=== PATIENT | male | born 1935 | race Caucasian/White ===

== ENCOUNTER 2016-10-28 19:34 | Inpatient (IN) | payer MEDICARE, BC ==
--- NOTE | 2016-10-28 19:51 | EDM.PDOC ---
ED HPI GI/ABDOMINAL - General Chief Complaint: Gastrointestinal Problem Stated Complaint: VOMITING Time Seen by Provider: 10/28/16 19:51 Source of Information: Reports: Patient, Family (spouse) History Limitations: Reports: No limitations - History of Present Illness INITIAL COMMENTS - FREE TEXT/NARRATIVE: 81-year-old male presents to the ED with diffuse abdominal pain. She states shortly after eating dinner about 1330 hours today he developed mid abdominal sharp stabbing pain that radiates through to his mid back like he had been stabbed with a wooden stake.pain has a strong colicky component and comes and goes but has constant abdominal pain. Is not passing any flatus. Abdomen is becoming distended and firm. Unable to take a full deep breath because of the abdominal distention. Previous abdominal surgery includes a cholecystectomy appendectomy and a midline laparotomy for spinal fusion. No troubles passing his water at this time. Last bowel movement was this morning. Without blood. No previous history of bowel obstruction. Has had a history of diverticulitis. No fever or chills. Started vomiting about an hour ago. Partially undigested dinner and dark bilious material noted. No blood.fairly does have a history of abdominal aortic aneurysm. Symptom Onset Date: 10/28/16 Symptom Onset Time: 14:00 Timing/Duration: Reports: Hour(s):, Getting worse, Gradual onset Location: generalized Quality: Reports: cramping, fullness, stabbing, radiating (radiates through to his mid back at times.) Severity: severe Improves with: Reports: other (nothing seems to make it better or worse.) Context: Denies: sick contact, bad/questionable food, out of country travel, recent surgery, recent trauma, lifting, activity/exercise Associated Symptoms: Reports: back pain, shoulder pain, constipation ( occasional problems), loss of appetite, malaise (started about an hour and a half ago.), nausea/vomiting. 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 below) (has been taking some TUMS and got initially gave him some relief.) - Related Data Allergies/ADRs: Allergies Allergy/AdvReac Type Severity Reaction Status Date / Time adhesive Allergy Itching Verified 10/28/16 19:59 morphine AdvReac Nausea and Verified 10/28/16 19:59 Vomiting Home Meds: Home Meds Acetaminophen [Tylenol Arthritis] 1,300 mg PO BID PRN 10/28/16 [History] B2/Vit A,C & E/Lut/Zeaxanth/Mn [Icaps] 1 cap PO DAILY 10/28/16 [History] Cranberry 400 mg PO DAILY 10/28/16 [History] Fenofibric Acid (Choline) [Trilipix] 135 mg PO DAILY 10/28/16 [History] Fish Oil/[place]-3 Fatty Acids [Fish Oil] 1 gm PO BID 10/28/16 [History] Methocarbamol [Robaxin-750] 750 mg PO BID 10/28/16 [History] Metoclopramide HCl 5 mg PO QID 10/28/16 [History] Metoprolol Succinate [Toprol XL] 12.5 mg PO DAILY 10/28/16 [History] Multivitamin [Multivitamins] 1 tab PO DAILY 10/28/16 [History] Omeprazole [Omeprazole] 20 mg PO DAILY 10/28/16 [History] Pregabalin [Lyrica] 150 mg PO BID 10/28/16 [History] Sucralfate [Sucralfate] 1 gram PO QIDACANDBED 10/28/16 [History] Tamsulosin [Flomax] 0.4 mg PO DAILY 10/28/16 [History] traMADol HCl [Ultram] 100 mg PO BID 10/28/16 [History] Past Medical History Cardiovascular History: Reports: Hypertension Respiratory History: Reports: COPD, Sleep apnea (does wear C-Pap machine at hs. ) - Past Surgical History GI Surgical History: Reports: Appendectomy, Cholecystectomy, Other (see below) ( midline laparotomy for spinal fusion.) Other Musculoskeletal Surgeries/Procedures:: midline laparotomy performed for spinal fusion several years ago. Social & Family History - Alcohol Use Alcohol Use History: Yes Days Per Week of Alcohol Use: 1 (allergies about one drink a month) - Living Situation & Occupation Living situation: Reports: , with spouse Occupation: retired ED ROS GENERAL - Review of Systems Review Of Systems: See Below Constitutional: Reports: decreased appetite. Denies: fever, chills, malaise, weakness, fatigue, weight loss HEENT: Reports: No symptoms Respiratory: Reports: shortness of breath. Denies: wheezing (feels can get a full deep breath because it aggravates his abdominal pain.), pleuritic chest pain, cough, sputum, hemoptysis Cardiovascular: Reports: Blood pressure problem, Dyspnea on exertion (usually in his lower extremity.), Edema. Denies: Chest pain, Claudication, Lightheadedness, Orthopnea (hypertension controlled with medication usually), Palpitations (chronically) GI/Abdominal: Reports: Abdominal pain (see history of present illness), Decreased appetite, Nausea, Vomiting. Denies: Flatus, Hematemesis, Hematochezia : Reports: no symptoms Musculoskeletal: Reports: neck pain, shoulder pain (chronic neck and low back pain.shoulder pain intermittently for rotator cuff disease.), back pain Skin: Reports: no symptoms Neurological: Reports: no symptoms Psychiatric: Reports: No symptoms Hematologic/Lymphatic: Reports: no symptoms Immunologic: Reports: no symptoms ED EXAM, GI/ABD - Physical Exam Exam: See Below Exam Limited By: No limitations General Appearance: alert, moderate distress (in obvious discomfort.) Eyes: bilateral: normal appearance (no jaundice) Throat/Mouth: Normal inspection, Normal lips, Normal oropharynx Neck: normal inspection, supple, non-tender, full range of motion. No: limited range of motion, lymphadenopathy (L), lymphadenopathy (R) Respiratory/Chest: lungs clear (mild tachypnea at rest.), normal breath sounds, no accessory muscle use, respiratory distress Cardiovascular: regular rate, rhythm, no gallop, no murmur, no rub GI/Abdominal: normal bowel sounds, no organomegaly, tenderness (even to light percussion throughout the abdomen suggesting underlying peritonitis.), guarding (throughout the abdomen but worse left lower quadrant left upper abdomen.), rebound, other (I could not palpate a large abdominal aortic aneurysm. He has a small inguinal hernia on the right side.). No: McBurney's sign, Verdin's sign (Male) Exam: Normal inspection Extremities: normal inspection, normal range of motion, non-tender, no pedal edema, normal capillary refill Neurological: alert, oriented, CN II-XII intact, normal cognition, normal gait Psychiatric: normal affect, normal mood Skin Exam: Warm, Dry, Intact, Normal color EKG INTERPRETATION EKG Date: 10/28/16 Time: 20:15 Rhythm: NSR Rate (beats/min): 68 [place]: LAD-left axis deviation (-90. A vertical heart) P-wave: present (first-degree AV block) QRS: normal ST-T: other (deafening Q-wave in lead 3 and aVF in near Q-wave in lead to compare with old inferior wall myocardial infarction.) QT: prolonged (mildly prolonged.) Course - Vital Signs Last Recorded V/S: Last Vital Signs Temp 36.6 C 10/29/16 00:16 Pulse 74 10/29/16 00:16 Resp 18 10/29/16 00:16 BP 132/79 10/29/16 00:16 Pulse Ox 93 L 10/29/16 00:17 - Orders/Labs/Meds Orders: Active Orders 24 hr Category Date Time Status Oxygen Therapy [RC] ASDIRECTED Care 10/28/16 21:49 Active Abdomen 1V Flat [CR] Stat Exams 10/28/16 19:57 Taken Abdomen Pelvis w Cont [CT] Stat Exams 10/28/16 20:51 Taken Chest 1V Frontal [CR] Stat Exams 10/28/16 19:57 Taken Medication Orders Acetaminophen (Tylenol) 650 mg PO Q4H PRN PRN Reason: Pain (Mild 1-3)/fever Acetaminophen/Hydrocodone Bitart ([place] 325-5 Mg) 1 tab PO Q4H PRN PRN Reason: Pain (moderate 4-6) Albuterol/Ipratropium (Duoneb 3.0-0.5 Mg/3 Ml) 3 ml NEB Q4H PRN PRN Reason: Shortness Of Breath/wheezing Bisacodyl (Dulcolax) 5 mg PO DAILY PRN PRN Reason: Constipation Docusate Sodium (Colace) 100 mg PO BID PRN PRN Reason: Constipation Enoxaparin Sodium (Lovenox) 40 mg SUBCUT DAILY TA Fish Oil (Fish Oil) 1 gm PO BID TA Hydromorphone HCl (Dilaudid) 1 mg IVPUSH Q3H PRN PRN Reason: Pain (severe 7-10) Stop: 11/03/16 23:59 Last Admin: 10/29/16 00:50 Dose: 1 mg Dextrose/Sodium Chloride (Dextrose 5%-1/2 Ns) 1,000 mls @ 125 mls/hr IV ASDIRECTED TA Last Admin: 10/29/16 01:05 Dose: 125 mls/hr Levofloxacin/Dextrose 500 mg/ (Premix) 100 mls @ 100 mls/hr IV Q24H [facility] Last Admin: 10/29/16 01:07 Dose: 100 mls/hr Promethazine HCl 12.5 mg/ (Sodium Chloride) 50.5 mls @ 100 mls/hr IV Q6H PRN PRN Reason: Nausea/Vomiting Metronidazole 500 mg/ Premix 100 mls @ 100 mls/hr IV Q8H [facility] Last Admin: 10/29/16 01:01 Dose: 100 mls/hr Lorazepam (Ativan) 0.5 mg IV Q6H PRN PRN Reason: Nausea/Vomiting Methocarbamol (Robaxin) 750 mg PO BID [facility] Metoclopramide HCl (Reglan) 5 mg PO QID [facility] Metoprolol Succinate (Toprol Xl) 12.5 mg PO DAILY [facility] Multivitamins (Thera) 1 each PO DAILY [facility] Non-Formulary Medication (Cranberry [Cranberry]) 400 mg PO DAILY [facility] Ondansetron HCl (Zofran) 4 mg IV Q6H PRN PRN Reason: Nausea/Vomiting Last Admin: 10/29/16 01:01 Dose: 4 mg Pantoprazole Sodium (Protonix) 40 mg PO DAILY@0700 [facility] Polyethylene Glycol (Miralax) 17 gm PO DAILY PRN PRN Reason: Constipation Pregabalin (Lyrica) 150 mg PO BID [facility] Senna/Docusate Sodium (Senna Plus) 1 tab PO BID PRN PRN Reason: Constipation Sucralfate (Carafate) 1 gm PO QIDACANDBED [facility] Tamsulosin HCl (Flomax) 0.4 mg PO DAILY [facility] Temazepam (Restoril) 30 mg PO BEDTIME PRN PRN Reason: Sleep Vit A/Vit C/Vit E/Selen/Cu/Zn/Lutei (Icaps Mv) 1 tab PO DAILY [facility] Labs: Laboratory Tests 10/28/16 10/28/16 10/28/16 Range/Units 20:00 20:00 20:00 WBC 8.86 (4.23-9.07) K/mm3 RBC 5.28 (4.63-6.08) M/mm3 Hgb 15.9 (13.7-17.5) gm/L Hct 48.4 (40.1-51.0) % MCV 91.7 (79.0-92.2) fl MCH 30.1 (25.7-32.2) pg MCHC 32.9 (32.2-35.5) g/dl RDW Std Deviation 46.1 H (35.1-43.9) fL Plt Count 154 L (163-337) K/mm3 MPV 11.5 (9.4-12.3) fl Neutrophils % (Manual) 75 H (40-60) % Band Neutrophils % 0 (0-10) % Lymphocytes % (Manual) 22 (20-40) % Atypical Lymphs % 0 % Monocytes % (Manual) 2 (2-10) % Eosinophils % (Manual) 0 L (0.8-7.0) % Basophils % (Manual) 1 (0.2-1.2) Toxic Granulation See note Platelet Estimate Adequate Plt Morphology Comment Normal RBC Morph Comment Normal PT 10.9 (8.0-13.0) SECONDS INR 1.03 Sodium 140 (136-145) mEq/L Potassium 3.7 (3.5-5.1) mEq/L Chloride 101 (98-107) mEq/L Carbon Dioxide 31 (21-32) mEq/L Anion Gap 11.7 (5-15) BUN 17 (7-18) mg/dL Creatinine 1.4 H (0.7-1.3) mg/dL Est Cr Clr Drug Dosing 40.71 mL/min Estimated GFR (MDRD) 49 (>60) mL/min BUN/Creatinine Ratio 12.1 L (14-18) Glucose 124 H (83-115) mg/dL Lactic Acid (0.4-2.0) mmol/L Calcium 9.4 (8.5-10.1) mg/dL Magnesium 2.0 (1.8-2.4) mg/dl Total Bilirubin 0.8 (0.2-1.0) mg/dL AST 128 H (15-37) U/L ALT 91 H (16-63) U/L Alkaline Phosphatase 51 (46-116) U/L Troponin I < 0.017 (0.00-0.056) ng/mL C-Reactive Protein 0.3 (<1.0) mg/dL B-Natriuretic Peptide (0-100) pg/mL Total Protein 7.4 (6.4-8.2) g/dl Albumin 3.9 (3.4-5.0) g/dl Globulin 3.5 gm/dL Albumin/Globulin Ratio 1.1 (1-2) Lipase 45807 H (73-393) U/L Urine Color (Yellow) Urine Appearance (Clear) Urine pH (5.0-8.0) Ur Specific [place] (1.005-1.030) Urine Protein (Negative) Urine Glucose (UA) (Negative) Urine Ketones (Negative) Urine Occult Blood (Negative) Urine Nitrite (Negative) Urine Bilirubin (Negative) Urine Urobilinogen (0.2-1.0) Ur Leukocyte Esterase (Negative) Urine RBC (0-5) /hpf Urine WBC (0-5) /hpf Ur Squamous Epith Cells (0-5) /hpf Urine Bacteria (FEW) /hpf Urine Mucus (FEW) /hpf 10/28/16 10/28/16 10/28/16 Range/Units 20:00 20:19 22:20 WBC (4.23-9.07) K/mm3 RBC (4.63-6.08) M/mm3 Hgb (13.7-17.5) gm/L Hct (40.1-51.0) % MCV (79.0-92.2) fl MCH (25.7-32.2) pg MCHC (32.2-35.5) g/dl RDW Std Deviation (35.1-43.9) fL Plt Count (163-337) K/mm3 MPV (9.4-12.3) fl Neutrophils % (Manual) (40-60) % Band Neutrophils % (0-10) % Lymphocytes % (Manual) (20-40) % Atypical Lymphs % % Monocytes % (Manual) (2-10) % Eosinophils % (Manual) (0.8-7.0) % Basophils % (Manual) (0.2-1.2) Toxic Granulation Platelet Estimate Plt Morphology Comment RBC Morph Comment PT (8.0-13.0) SECONDS INR Sodium (136-145) mEq/L Potassium (3.5-5.1) mEq/L Chloride (98-107) mEq/L Carbon Dioxide (21-32) mEq/L Anion Gap (5-15) BUN (7-18) mg/dL Creatinine (0.7-1.3) mg/dL Est Cr Clr Drug Dosing mL/min Estimated GFR (MDRD) (>60) mL/min BUN/Creatinine Ratio (14-18) Glucose (83-115) mg/dL Lactic Acid 0.8 (0.4-2.0) mmol/L Calcium (8.5-10.1) mg/dL Magnesium (1.8-2.4) mg/dl Total Bilirubin (0.2-1.0) mg/dL AST (15-37) U/L ALT (16-63) U/L Alkaline Phosphatase (46-116) U/L Troponin I (0.00-0.056) ng/mL C-Reactive Protein (<1.0) mg/dL B-Natriuretic Peptide 53 (0-100) pg/mL Total Protein (6.4-8.2) g/dl Albumin (3.4-5.0) g/dl Globulin gm/dL Albumin/Globulin Ratio (1-2) Lipase (73-393) U/L Urine Color Yellow (Yellow) Urine Appearance Clear (Clear) Urine pH 7.0 (5.0-8.0) Ur Specific [place] 1.020 (1.005-1.030) Urine Protein Negative (Negative) Urine Glucose (UA) Negative (Negative) Urine Ketones Negative (Negative) Urine Occult Blood Negative (Negative) Urine Nitrite Negative (Negative) Urine Bilirubin Negative (Negative) Urine Urobilinogen 1.0 (0.2-1.0) Ur Leukocyte Esterase Negative (Negative) Urine RBC Not seen (0-5) /hpf Urine WBC Not seen (0-5) /hpf Ur Squamous Epith Cells 0-5 (0-5) /hpf Urine Bacteria Not seen (FEW) /hpf Urine Mucus Few (FEW) /hpf Meds: Medications Generic Name Dose Route Start Last Admin Trade Name Freq PRN Reason Stop Dose Admin Acetaminophen 650 mg 10/29/16 00:16 Tylenol PO Q4H PRN Pain (Mild 1-3)/fever Acetaminophen/Hydrocodone Bitart 1 tab 10/29/16 00:16 [place] 325-5 Mg PO Q4H PRN Pain (moderate 4-6) Albuterol/Ipratropium 3 ml 10/29/16 00:19 Duoneb 3.0-0.5 Mg/3 Ml NEB Q4H PRN Shortness Of Breath/wheezing Bisacodyl 5 mg 10/29/16 00:19 Dulcolax PO DAILY PRN Constipation Docusate Sodium 100 mg 10/29/16 00:19 Colace PO BID PRN Constipation Enoxaparin Sodium 40 mg 10/29/16 09:00 Lovenox SUBCUT DAILY [facility] Fish Oil 1 gm 10/29/16 09:00 Fish Oil PO BID [facility] Hydromorphone HCl 1 mg 10/29/16 00:16 10/29/16 00:50 Dilaudid IVPUSH 11/03/16 23:59 1 mg Q3H PRN Administration Pain (severe 7-10) Dextrose/Sodium Chloride 1,000 mls @ 125 mls/hr 10/29/16 00:30 10/29/16 01:05 Dextrose 5%-1/2 Ns IV 125 mls/hr ASDIRECTED TA Administration Levofloxacin/Dextrose 500 mg/ 100 mls @ 100 mls/hr 10/29/16 00:30 10/29/16 01 :07 Premix IV 100 mls/hr Q24H TA Administration Promethazine HCl 12.5 mg/ 50.5 mls @ 100 mls/hr 10/29/16 00:19 Sodium Chloride IV Q6H PRN Nausea/Vomiting Metronidazole 500 mg/ Premix 100 mls @ 100 mls/hr 10/29/16 00:30 10/29/16 01: 01 IV 100 mls/hr Q8H TA Administration Lorazepam 0.5 mg 10/29/16 00:19 Ativan IV Q6H PRN Nausea/Vomiting Methocarbamol 750 mg 10/29/16 09:00 Robaxin PO BID [facility] Metoclopramide HCl 5 mg 10/29/16 09:00 Reglan PO QID [facility] Metoprolol Succinate 12.5 mg 10/29/16 09:00 Toprol Xl PO DAILY [facility] Multivitamins 1 each 10/29/16 09:00 Thera PO DAILY [facility] Non-Formulary Medication 400 mg 10/29/16 09:00 Cranberry [Cranberry] PO DAILY [facility] Ondansetron HCl 4 mg 10/29/16 00:19 10/29/16 01:01 Zofran IV 4 mg Q6H PRN Administration Nausea/Vomiting Pantoprazole Sodium 40 mg 10/29/16 07:00 Protonix PO DAILY@0700 TA Polyethylene Glycol 17 gm 10/29/16 00:19 Miralax PO DAILY PRN Constipation Pregabalin 150 mg 10/29/16 09:00 Lyrica PO BID TA Senna/Docusate Sodium 1 tab 10/29/16 00:19 Senna Plus PO BID PRN Constipation Sucralfate 1 gm 10/29/16 07:00 Carafate PO QIDACANDBED TA Tamsulosin HCl 0.4 mg 10/29/16 09:00 Flomax PO DAILY TA Temazepam 30 mg 10/29/16 00:19 Restoril PO BEDTIME PRN Sleep Vit A/Vit C/Vit E/Selen/Cu/Zn/Lutei 1 tab 10/29/16 09:00 Icaps Mv PO DAILY TA Discontinued Medications Generic Name Dose Route Start Last Admin Trade Name Freq PRN Reason Stop Dose Admin Diatrizoate Meglum/Diatrizoate Sod 120 ml 10/28/16 22:02 Gastrografin 37% PO 10/28/16 22:03 ONETIME ONE Hydromorphone HCl 1 mg 10/28/16 19:59 10/28/16 20:09 Dilaudid IVPUSH 10/28/16 20:00 1 mg ONETIME ONE Administration Hydromorphone HCl 0.5 mg 10/28/16 20:58 10/28/16 21:06 Dilaudid IVPUSH 10/28/16 20:59 0.5 mg ONETIME ONE Administration Sodium Chloride 1,000 mls @ 200 mls/hr 10/28/16 19:59 10/28/16 20:07 Normal Saline IV 10/29/16 00:58 200 mls/hr ONETIME ONE Administration Iopamidol 100 ml 10/28/16 22:01 [id number] (76%) IVPUSH 10/28/16 22:02 ONETIME ONE Metoclopramide HCl 10 mg 10/28/16 19:59 10/28/16 20:08 Reglan IVPUSH 10/28/16 20:00 10 mg ONETIME ONE Administration - Radiology Interpretation Free Text/Narrative:: 81-year-old male presents the ED for evaluation of generalized severe abdominal pain that started about 1400 hours today. The pain is constant with a strong colicky component. It radiates through to his mid back at times. Unable to eat any supper. Not passing any flatus for the last 4-5 hours. Normal bowel movement earlier today. No blood noted. Feels abdomen is bloated and distended. History of previous cholecystectomy appendectomy and midline laparotomy for spinal fusion. No history of previous bowel obstruction. Started vomiting about hour and half ago of partially undigested dinner and bilious material. No blood noted. Exam reveals abdominal distention with acute tenderness throughout even to percussion suggesting underlying peritonitis. Seems to have more pain in the left lower corner the abdomen than in other parts of the abdomen. Questionable whether per he is exposed to perforated diverticulitis versus small bowel obstruction. Plan IV fluids at 200 mils per hour. He is dependent edema to his knees and history of mild congestive failure.one view chest x-rayone view of the abdomen for now. Routine labs to include serum magnesium and lipase. Given Dilaudid 1 mg IV and Reglan 10 mg IV for acute nausea and pain relief. - Re-Assessments/Exams Free Text/Narrative Re-Assessment/Exam: 10/28/16 20:50 x-ray of the chest shows moderate cardiomegaly. Evidence of previous C-spine fusion with hardware in place. Visualized portion of the lungs appear to be clear. No free air under the diaphragm appreciated. X-ray of the abdomen show scattered stool throughout the colon with no air-fluid levels to suggest an obstruction. There appears to be a stool bolus in the rectum. He has extensive fusion of his lumbar spine it appears to be from lumbar one to lumbar 5 and pedicle screws going down through SI joints bilaterally. 10/28/16 20:54lab work reveals a normal white count of 8.86. Differential is pending. Hemoglobin is 15.9 with hematocrit of 40.4 platelets 154,000. Chemistry shows sodium 140 potassium 3.7. Anion gap normal at 11.7. Creatinine 1.4 within the GFR 49. AST is mildly elevated 128 ALT mildly elevated 124. Lipase is pending. Lactic acid is normal at 0.8 bilirubin 0.8. Therefore cause of his acute abdominal pain is not yet evident. CT of the abdomen and pelvis will be performed with both oral and IV contrast.he is still experiencing a good deal of sharp stabbing upper abdominal pain at this time that radiates through to his back. At present he feels it up underneath his left costal margin. Will repeat Dilaudid 0.5 mg IV. 10/28/16 21:47 Differential is now back and reveals 75% neutrophils with no bands. Coags are normal.lipase is markedly elevated at 17,264.Therefore he is suffering acute pancreatitis. He'll still have the CT of the abdomen and pelvis performed to see if that shows any etiology or reason for the pancreatitis. 10/28/16 22:52 CT scan of the abdomen and pelvis has been completed. No report from the right is yet available. Liver appears normal. Pancreas appears to be minimally inflamed and common bile duct appears to be about 8-9 mm in size. Kidneys are showing evidence of atrophy in both shows solitary cyst in the lateral pole. There is dilatation of the proximal ureters but they are normal at the bladder. Prostate fairly normal in size. Numerous diverticula present throughout the colon with no active diverticulitis.case discussed with master fire control technician hospitalist Dr. Alan and the patient will be admitted to the [facility] surgery floor. 10/28/16 23:30: Elysia fairbanks reports that the area of the tail of the pancreas that appears to be mildly inflamed is adjacent to diverticula of the site of the colon in this area. He suspicious he may have an underlying diverticulitis that may have caused the pancreatitis. Similarly comments on a duodenum diverticulum which contains food products or debris might also be causing inflammation in the head of the pancreas.I think this might be a stretch in terms as to the cause of his pancreatitis. With a white count of 8.8 with 75% neutrophils I did not to start him on any antibiotic therapy. I suspect the cause is medication Trilipex. Departure - Departure Time of Disposition: 23:30 Disposition: Admitted As Inpatient 67 Condition: serious Clinical Impression: Acute pancreatitis Qualifiers: Pancreatitis type: drug induced Acute pancreatitis complication: infected necrosis Qualified Code(s): K85.32 - Drug induced acute pancreatitis with infected necrosis - My Orders Last 24 Hours: My Active Orders 10/28/16 19:57 Abdomen 1V Flat [CR] Stat Chest 1V Frontal [CR] Stat 10/28/16 20:51 Abdomen Pelvis w Cont [CT] Stat 10/28/16 21:49 Oxygen Therapy [RC] ASDIRECTED - Assessment/Plan Last 24 Hours: My Active Orders 10/28/16 19:57 Abdomen 1V Flat [CR] Stat Chest 1V Frontal [CR] Stat 10/28/16 20:51 Abdomen Pelvis w Cont [CT] Stat 10/28/16 21:49 Oxygen Therapy [RC] ASDIRECTED
[2016-10-28] MEDS ORDERED: HYDROmorphone 1 MG/ML Syringe IVPUSH ONE (19:59)
[2016-10-28] MEDS ORDERED: Sodium Chloride 0.9% 1,000 ML IV ONE (19:59)
[2016-10-28] MEDS ORDERED: Metoclopramide 10 MG/2 ML SDV IVPUSH ONE (19:59)
[2016-10-28] MEDS ORDERED: HYDROmorphone 0.5 MG/0.5 ML Syringe IVPUSH ONE (20:58)
[2016-10-28] MEDS ORDERED: Iopamidol 755 Mg/ML 100 ML Bottle IVPUSH ONE (22:01)
[2016-10-28] MEDS ORDERED: Diatrizoate Meglumine/Diatrizoate Sodium 37% 120 ML Bottle PO ONE (22:02)
--- NOTE | 2016-10-29 00:06 | PCM.HP ---
H&P History of Present Illness - General Date of Service: 10/29/16 Admit Problem/Dx: Admission Diagnosis/Problem Admission Diagnosis/Problem Pancreatitis Source of Information: Patient, Old records, Provider, RN notes reviewed History Limitations: Reports: No limitations - History of Present Illness Initial Comments - Free Text/Narative: This is an 81 yo elderly white male with past medical hx/o HTN, COPD, DAMIAN on CPAP, Chronic Pain, Colonic Diverticulosis, and Obesity who comes in with complains of diffuse abdominal pain. His symptom started post-prandial, lunch time today. He describes his pain as sharp, stabbing with radiation to his mid back. His pain is constant and colicky in nature. His chief of complaint is associated with reduced appetite, malaise, bloating, distention, nausea and vomiting (partially undigested food and bilious material). His pain is aggravated by taking deep breaths and is somewhat improved with TUMS. His most recent bowel movement was earlier today. Patient carries a hx/o Cholecystectomy, Appendectomy, Diverticulitis and Laparotomy S/p Spinal Fusion. He denies any recent sick contact, no bad drinks or unusual food, no recent travel outside the country, and no recent surgery or trauma. His initial ED work up shows CBC remarkable for platelet level of 154. His chemistry is significant for Cr 1.4, BUN 17, BS 124, AST 128, ALT 91 and Lipase 52498. LA 0.8, Alk Phos 51, Troponin x1 < 0.017, CRP 0.3, BNP 52, INT 1.03. His UA is negative for UTI. CXR shows no acute abnormal findings. Abdomen/Pelvis CT scan shows inflamed pancreatic as well as stranding at the splenic flexure which may be suggestive for colonic diverticulitis. Patient as referred to me for Acute Pancreatitis and Possible Colonic Diverticulitis. He is full code. Abdominal Pain Score (Numeric/FACES): 8 - Related Data Allergies/Adverse Reactions: Allergies Allergy/AdvReac Type Severity Reaction Status Date / Time adhesive Allergy Itching Verified 10/28/16 19:59 morphine AdvReac Nausea and Verified 10/28/16 19:59 Vomiting Home Medications: Home Meds Acetaminophen [Tylenol Arthritis] 1,300 mg PO BID PRN 10/28/16 [History] B2/Vit A,C & E/Lut/Zeaxanth/Mn [Icaps] 1 cap PO DAILY 10/28/16 [History] Cranberry 400 mg PO DAILY 10/28/16 [History] Fenofibric Acid (Choline) [Trilipix] 135 mg PO DAILY 10/28/16 [History] Fish Oil/Bangs-3 Fatty Acids [Fish Oil] 1 gm PO BID 10/28/16 [History] Methocarbamol [Robaxin-750] 750 mg PO BID 10/28/16 [History] Metoclopramide HCl 5 mg PO QID 10/28/16 [History] Metoprolol Succinate [Toprol XL] 12.5 mg PO DAILY 10/28/16 [History] Multivitamin [Multivitamins] 1 tab PO DAILY 10/28/16 [History] Omeprazole [Omeprazole] 20 mg PO DAILY 10/28/16 [History] Pregabalin [Lyrica] 150 mg PO BID 10/28/16 [History] Sucralfate [Sucralfate] 1 gram PO QIDACANDBED 10/28/16 [History] Tamsulosin [Flomax] 0.4 mg PO DAILY 10/28/16 [History] traMADol HCl [Ultram] 100 mg PO BID 10/28/16 [History] Past Medical History HEENT History: Reports: Cataract Cardiovascular History: Reports: Hypertension Respiratory History: Reports: COPD, Sleep apnea (does wear C-Pap machine at hs. ) Gastrointestinal History: Reports: Hemorrhoids Musculoskeletal History: Reports: Other (see below) Other Musculoskeletal History: BACK SURGERY - Past Surgical History GI Surgical History: Reports: Appendectomy, Cholecystectomy, Other (see below) ( midline laparotomy for spinal fusion.) Other Musculoskeletal Surgeries/Procedures:: midline laparotomy performed for spinal fusion several years ago. Social & Family History - Tobacco Use Smoking Status *Q: Unknown Ever Smoked Second Hand Smoke Exposure: No - Living Situation & Occupation Living situation: Reports: , with spouse Occupation: retired H&P Review of Systems - Review of Systems: Review Of Systems: See Below General: Reports: decreased appetite. Denies: fever, chills, weakness, fatigue HEENT: Reports: no symptoms Pulmonary: Reports: shortness of breath Cardiovascular: Reports: dyspnea on exertion, edema, blood pressure problem Gastrointestinal: Reports: Abdominal pain, Decreased appetite, Nausea, Vomiting Genitourinary: Reports: no symptoms Musculoskeletal: Reports: neck pain, shoulder pain, back pain Skin: Denies: cyanosis, bruising, pruritis, rash Psychiatric: Denies: depression, anxiety, hallucinations Neurological: Denies: confusion, difficulty walking, gait disturbance Hematologic/Lymphatic: Reports: no symptoms Immunologic: Reports: no symptoms Exam - Exam Exam: See Below - Vital Signs Vital Signs: Last Vital Signs Temp 36.5 C 10/28/16 19:43 Pulse 67 10/28/16 19:43 Resp BP 169/75 H 10/28/16 19:43 Pulse Ox 94 L 10/28/16 19:43 Weight: 103.873 kg - Exam Quality Assessment: No: supplemental oxygen General: alert, oriented, cooperative. No: mild distress HEENT: Conjunctiva clear, EACs clear, EOMI, Hearing intact, Mucosa moist & pink , Nares patent, Normal nasal septum, Posterior pharynx clear, Pupils equal, Pupils reactive, TMs clear Neck: supple, trachea midline, 2+ carotid pulse wo bruit, full range of motion Lungs: Clear to auscultation, Normal respiratory effort Cardiovascular: regular rate, regular rhythm Abdomen: soft, tenderness, hypoactive bowel sounds. No: peritoneal signs, distention, guarding, rigidity, rebound (Male) Exam: Deferred Rectal (Males) Exam: Deferred Back Exam: normal inspection, decreased range of motion Extremities: normal inspection, normal pulses. No: clubbing, cyanosis, calf tenderness, edema Peripheral Pulses: 2+: dorsalis pedis (L), dorsalis pedis (R) Skin: warm, dry, intact Neuro Extensive - Mental Status: oriented x3, normal cognition, memory intact Neuro Extensive - Motor, Sensory, Reflexes: CN II-XII intact, normal gait Psychiatric: alert, normal affect, normal mood - Patient Data Result Diagrams: 10/28/16 20:00 10/28/16 20:00 EKG INTERPRETATION EKG Date: 10/29/16 Time: 08:12 Rhythm: other (Sinus Rhythm) Rate (beats/min): 67 QRS: other (Q wave in inferior leads) EKG Interpretation Comments: First Degree AVB *Q Meaningful Use (ADM) - VTE *Q VTE Criteria *Q: - Stroke *Q Stroke Criteria *Q: - AMI *Q AMI Criteria *Q: Problem List Initiated/Reviewed/Updated: Yes Orders Last 24hrs: Medication Orders Sodium Chloride (Normal Saline) 1,000 mls @ 200 mls/hr IV ONETIME ONE Stop: 10/29/16 00:58 Last Admin: 10/28/16 20:07 Dose: 200 mls/hr Assessment/Plan Comment:: Assessment/Plan: Acute: Pancreatitis - Hx/o Cholecystectomy, Appendectomy and Diverticulitis - He is on Fenofibrates for HLD - CT scan: inflamed pancreas tail - Lipase 16713 - Bj's Criteria: Incomplete no LDH and Triglycerides - Supportive care and Pain Management - NPO except ice chips, sips of water and oral meds - Monitor Lipase Query Colonic Diverticulitis - Stranding Near Tail of Pancreas/Contiguous with Several Diverticuli of the Splenic Flexure - CRP is normal - Will start IV ATB: Flagyl and Levaquin - Consult Dr. Sue for further input Chronic: HTN COPD DAMIAN on CPAP Chronic Pain Colonic Diverticulosis w/ Hx/o Diverticulitis Hx/o Midline Laparotomy for Spinal Fusion Obesity with BMI of 34.8 Plan: Admit to Med-Surg Routine AM Labs Resume Home Meds Will hold Fenobirates PT/OT consult CM/SW for d/c planning Additional orders as above Code status:1
[2016-10-29] MEDS ORDERED: Acetaminophen/HYDROcodone 325-5 MG Tab PO PRN (00:16)
[2016-10-29] MEDS ORDERED: Promethazine 12.5 MG in Sodium Chloride 0.9% 50 ML IV PRN (00:19)
[2016-10-29] MEDS ORDERED: LORazepam 2 MG/ML MDV IV PRN (00:19)
[2016-10-29] MEDS ORDERED: Temazepam 15 MG Cap PO PRN (00:19)
[2016-10-29] MEDS ORDERED: Ondansetron 4 MG/2 ML SDV IV PRN (00:19)
[2016-10-29] MEDS ORDERED: Albuterol/Ipratropium 3.0-0.5 MG/3 ML Neb Soln NEB PRN (00:19)
[2016-10-29] MEDS ORDERED: Polyethylene Glycol 3350 Powder 17 GM Packet PO PRN (00:19)
[2016-10-29] MEDS ORDERED: Docusate Sodium 100 MG Cap PO PRN (00:19)
[2016-10-29] MEDS ORDERED: Bisacodyl 5 MG Tab PO PRN (00:19)
[2016-10-29] MEDS ORDERED: Dextrose 5%-0.45% NaCl 1,000 ML IV SCH (00:30)
[2016-10-29] MEDS: HYDROmorphone 1 MG/ML Syringe IVPUSH PRN ×3 (00:50→21:20)
[2016-10-29] MEDS: metroNIDAZOLE/Normal Saline 500 MG in Premix Bag 1 BAG IV SCH ×3 (01:01→16:37)
[2016-10-29] MEDS: Levofloxacin/Dextrose 5%-Water 500 MG in Premix Bag 1 BAG IV SCH (01:07)
[2016-10-29] MEDS: Sucralfate 1 GM Tab PO SCH ×4 (06:13→21:24)
[2016-10-29] MEDS: Pantoprazole 40 MG Tab.CR PO SCH (06:13)
[2016-10-29] MEDS: Pregabalin 75 MG Cap PO SCH ×2 (08:11→21:23)
[2016-10-29] MEDS: Fish Oil/Omega-3 Fatty Acids 1 Gm Cap PO SCH ×2 (08:11→21:23)
[2016-10-29] MEDS: Multivitamins,Therapeutic Tab PO SCH (08:11)
[2016-10-29] MEDS: Metoprolol Succinate 25 MG Tab.ER PO SCH (08:11)
[2016-10-29] MEDS: Multivitamins with Minerals/Folic Acid/Lutein/Zeaxanth Tab PO SCH (08:11)
[2016-10-29] MEDS: Metoclopramide 5 MG Tab PO SCH ×4 (08:12→21:23)
[2016-10-29] MEDS: Enoxaparin 40 MG/0.4 ML Syringe SUBCUT SCH (08:12)
[2016-10-29] MEDS: Methocarbamol 500 MG Tab PO SCH ×2 (08:13→21:25)
[2016-10-29] MEDS: Cranberry [Cranberry] 400 MG PO SCH (08:14)
--- NOTE | 2016-10-29 08:15 | CT ---
CT abdomen and pelvis Technique: Multiple axial sections were obtained from above the dome of the diaphragm inferiorly to the pubic symphysis. Intravenous and oral contrast was utilized. Delayed images were also obtained through the bladder. Comparison: Previous CT abdomen exam dated 11/13/12. Findings: Two small nodules noted within the right lung base in a subpleural location which are stable. Mild fibrosis noted within the left lung base as well as incidental atelectasis. Liver shows mild fatty infiltration. Surgical clips seen from prior cholecystectomy. Spleen appears within normal limits. Adrenal glands show no nodule. Small cysts are seen within both kidneys. Cysts are believed to be stable from prior exam. Pancreas shows no mass. There is some inflammatory change around the pancreas. Duodenal diverticulum is seen. Aorta shows atherosclerotic change which continues into the iliac vessels. No aneurysm is seen. No retroperitoneal adenopathy or mesenteric abnormalities are identified. Diverticuli seen within the descending and sigmoid colons without diverticulitis. No free fluid seen within the pelvis. Diffuse surgery noted within the lumbar spine. Impression: 1. Inflammatory change around the pancreas most likely representing mild pancreatitis. Findings may also represent diverticulitis as colonic diverticuli are located close to the tail of the pancreas. 2. Single duodenal diverticulum is seen. Multiple diverticuli seen within the descending and sigmoid colon. 3. Other incidental findings. Diagnostic code #3 I agree with preliminary report issued by [employer] [facility] (preliminary report dictated on 10/29/16, 12:06 AM Central Time)
--- NOTE | 2016-10-29 08:15 | CR ---
Chest: Frontal view of the chest was obtained. Comparison: Previous chest x-ray of 11/01/13. Heart size has a left ventricular configuration. Tortuous thoracic aorta is seen. Lungs are clear with no acute infiltrates. Previous cervical spine surgery is noted. Bony structures are grossly intact. Impression: 1. Incidental findings. Nothing acute is seen on frontal chest x-ray. Diagnostic code #2
--- NOTE | 2016-10-29 08:15 | CR ---
Abdomen: Supine view of the abdomen was obtained. Comparison: No previous abdominal x-ray. Extensive lumbar spine surgery is noted. Surgical clips also noted within the upper right abdomen. Calcifications are identified within the pelvis which are compatible with phleboliths. Bowel gas pattern appears normal. Impression: 1. Incidental findings. Diagnostic code #2
[2016-10-29] MEDS ORDERED: Metoprolol Succinate 25 MG Tab.ER PO SCH (09:00)
[2016-10-29] MEDS ORDERED: Non-Formulary Medication 1 Each (Omeprazole 20 MG) PO SCH (09:00)
[2016-10-29] MEDS ORDERED: Tamsulosin 0.4 MG Cap.ER PO SCH (09:00)
[2016-10-29] MEDS: Dextrose 5%-0.45% NaCl 1,000 ML IV SCH ×2 (11:02→19:44)
[2016-10-29] MEDS ORDERED: Magnesium Sulfate/Water 2 GM in Premix Bag 1 BAG IV ONE (13:00)
--- NOTE | 2016-10-29 13:04 | PCM.PN ---
- General Info Date of Service: 10/29/16 Admission Dx/Problem (Free Text): Admission Diagnosis/Problem Admission Diagnosis/Problem Pancreatitis Waqas is a pleasant 81yo male admitted last evening with acute pancreatitis. He slept fairly well overnight. Pain has been under control with pain medications, nausea controlled now. 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 He is voiding without difficulty. No BM today. VSS overnight, afebrile. Functional Status: Reports: pain controlled, ambulating, urinating. Denies: tolerating diet (NPO) - Review of Systems General: Reports: weakness, fatigue, malaise. Denies: fever, night sweats, appetite (no appetite and NPO) HEENT: Reports: no symptoms Pulmonary: Reports: no symptoms. Denies: shortness of breath, cough Cardiovascular: Reports: no symptoms. Denies: chest pain, dyspnea on exertion, lightheadedness Gastrointestinal: Reports: Abdominal pain, Decreased appetite, Nausea, Vomiting (no further vomiting) Genitourinary: Reports: no symptoms Musculoskeletal: Reports: no symptoms, back pain Neurological: Reports: no symptoms Psychiatric: Reports: no symptoms - Patient Data Vitals - most recent: Last Vital Signs Temp 99.0 F 10/29/16 12:14 Pulse 61 10/29/16 12:14 Resp 18 10/29/16 12:14 BP 117/63 10/29/16 12:14 Pulse Ox 93 L 10/29/16 12:14 Weight - most recent: 229 lb I&O - last 24 hours: Intake & Output 10/28/16 10/29/16 10/29/16 22:59 06:59 14:59 Intake Total 1055 0 Output Total 1350 1000 Balance -295 -1000 Lab Results last 24 hrs: Laboratory Results - last 24 hr 10/29/16 10/29/16 Range/Units 05:26 05:26 WBC 7.96 (4.23-9.07) K/mm3 RBC 4.68 (4.63-6.08) M/mm3 Hgb 14.4 (13.7-17.5) gm/L Hct 43.0 (40.1-51.0) % MCV 91.9 (79.0-92.2) fl MCH 30.8 (25.7-32.2) pg MCHC 33.5 (32.2-35.5) g/dl RDW Std Deviation 45.7 H (35.1-43.9) fL Plt Count 135 L (163-337) K/mm3 MPV 11.4 (9.4-12.3) fl Neut % (Auto) 75.3 H (34.0-67.9) % Lymph % (Auto) 17.2 L (21.8-53.1) % [place] % (Auto) 6.9 (5.3-12.2) % Eos % (Auto) 0 L (0.8-7.0) Baso % (Auto) 0.3 (0.1-1.2) % Neut # 6.00 H (1.78-5.38) K/mm3 Lymph # 1.37 (1.32-3.57) K/mm3 [place] # 0.55 (0.30-0.82) K/mm3 Eos # 0.00 L (0.04-0.54) K/mm3 Baso # 0.02 (0.01-0.08) K/mm3 Sodium 140 (136-145) mEq/L Potassium 3.7 (3.5-5.1) mEq/L Chloride 103 (98-107) mEq/L Carbon Dioxide 28 (21-32) mEq/L Anion Gap 12.7 (5-15) BUN 14 (7-18) mg/dL Creatinine 1.1 (0.7-1.3) mg/dL Est Cr Clr Drug Dosing 53.56 mL/min Estimated GFR (MDRD) > 60 (>60) mL/min BUN/Creatinine Ratio 12.7 L (14-18) Glucose 144 H (83-115) mg/dL Calcium 8.5 (8.5-10.1) mg/dL Magnesium 1.7 L (1.8-2.4) mg/dl Lactate Dehydrogenase 157 (85-227) U/L C-Reactive Protein 1.6 H* (<1.0) mg/dL Triglycerides 106 (<150) mg/dL Cholesterol 162 (<200) mg/dL LDL Cholesterol Direct 103 H* (<100) mg/dL HDL Cholesterol 41.0 (40-59) mg/dL Lipase 6013 H (73-393) U/L Med Orders - Current: Current Medications Acetaminophen (Tylenol) 650 mg PO Q4H PRN PRN Reason: Pain (Mild 1-3)/fever Acetaminophen/Hydrocodone Bitart ([place]igrant 325-5 Mg) 1 tab PO Q4H PRN PRN Reason: Pain (moderate 4-6) Albuterol/Ipratropium (Duoneb 3.0-0.5 Mg/3 Ml) 3 ml NEB Q4H PRN PRN Reason: Shortness Of Breath/wheezing Bisacodyl (Dulcolax) 5 mg PO DAILY PRN PRN Reason: Constipation Docusate Sodium (Colace) 100 mg PO BID PRN PRN Reason: Constipation Enoxaparin Sodium (Lovenox) 40 mg SUBCUT DAILY [facility] Last Admin: 10/29/16 08:12 Dose: 40 mg Fish Oil (Fish Oil) 1 gm PO BID [facility] Last Admin: 10/29/16 08:11 Dose: 1 gm Hydromorphone HCl (Dilaudid) 1 mg IVPUSH Q3H PRN PRN Reason: Pain (severe 7-10) Stop: 11/03/16 23:59 Last Admin: 10/29/16 08:13 Dose: 1 mg Levofloxacin/Dextrose 500 mg/ (Premix) 100 mls @ 100 mls/hr IV Q24H [facility] Last Admin: 10/29/16 01:07 Dose: 100 mls/hr Promethazine HCl 12.5 mg/ (Sodium Chloride) 50.5 mls @ 100 mls/hr IV Q6H PRN PRN Reason: Nausea/Vomiting Metronidazole 500 mg/ Premix 100 mls @ 100 mls/hr IV Q8H [facility] Last Admin: 10/29/16 08:12 Dose: 100 mls/hr Dextrose/Sodium Chloride (Dextrose 5%-1/2 Ns) 1,000 mls @ 125 mls/hr IV ASDIRECTED [facility] Last Admin: 10/29/16 11:02 Dose: 125 mls/hr Magnesium Sulfate 2 gm/ Premix 50 mls @ 25 mls/hr IV ONETIME ONE Stop: 10/29/16 14:59 Last Admin: 10/29/16 12:16 Dose: 25 mls/hr Lorazepam (Ativan) 0.5 mg IV Q6H PRN PRN Reason: Nausea/Vomiting Magnesium Sulfate (Pharmacy To Dose - Magnesium Replacement) 0 dose .XX ASDIRECTED PRN PRN Reason: RX DOSE Methocarbamol (Robaxin) 750 mg PO BID [facility] Last Admin: 10/29/16 08:13 Dose: 750 mg Metoclopramide HCl (Reglan) 5 mg PO QID [facility] Last Admin: 10/29/16 12:16 Dose: 5 mg Metoprolol Succinate (Toprol Xl) 25 mg PO DAILY [facility] Last Admin: 10/29/16 08:11 Dose: 25 mg Multivitamins (Thera) 1 each PO DAILY [facility] Last Admin: 10/29/16 08:11 Dose: 1 each Ondansetron HCl (Zofran) 4 mg IV Q6H PRN PRN Reason: Nausea/Vomiting Last Admin: 10/29/16 01:01 Dose: 4 mg Pantoprazole Sodium (Protonix) 40 mg PO DAILY@0700 [facility] Last Admin: 10/29/16 06:13 Dose: 40 mg Cranberry [Cranberry (] 400 Mg) 0 each PO DAILY [facility] Last Admin: 10/29/16 08:14 Dose: Not Given Polyethylene Glycol (Miralax) 17 gm PO DAILY PRN PRN Reason: Constipation Potassium Chloride (Pharmacy To Dose - Potassium Replacement) 0 dose .XX ASDIRECTED PRN PRN Reason: RX DOSE Pregabalin (Lyrica) 150 mg PO BID [facility] Last Admin: 10/29/16 08:11 Dose: 150 mg Senna/Docusate Sodium (Senna Plus) 1 tab PO BID PRN PRN Reason: Constipation Sucralfate (Carafate) 1 gm PO QIDACANDBED [facility] Last Admin: 10/29/16 10:59 Dose: 1 gm Tamsulosin HCl (Flomax) 0.4 mg PO BEDTIME [facility] Temazepam (Restoril) 30 mg PO BEDTIME PRN PRN Reason: Sleep Vit A/Vit C/Vit E/Selen/Cu/Zn/Lutei (Icaps Mv) 1 tab PO DAILY [facility] Last Admin: 10/29/16 08:11 Dose: 1 tab Discontinued Medications Diatrizoate Meglum/Diatrizoate Sod (Gastrografin 37%) 120 ml PO ONETIME ONE Stop: 10/28/16 22:03 Hydromorphone HCl (Dilaudid) 1 mg IVPUSH ONETIME ONE Stop: 10/28/16 20:00 Last Admin: 10/28/16 20:09 Dose: 1 mg Hydromorphone HCl (Dilaudid) 0.5 mg IVPUSH ONETIME ONE Stop: 10/28/16 20:59 Last Admin: 10/28/16 21:06 Dose: 0.5 mg Sodium Chloride (Normal Saline) 1,000 mls @ 200 mls/hr IV ONETIME ONE Stop: 10/29/16 00:58 Last Admin: 10/28/16 20:07 Dose: 200 mls/hr Dextrose/Sodium Chloride (Dextrose 5%-1/2 Ns) 1,000 mls @ 125 mls/hr IV ASDIRECTED [facility] Last Admin: 10/29/16 01:05 Dose: 125 mls/hr Iopamidol (Isovue-370 (76%)) 100 ml IVPUSH ONETIME ONE Stop: 10/28/16 22:02 Metoclopramide HCl (Reglan) 10 mg IVPUSH ONETIME ONE Stop: 10/28/16 20:00 Last Admin: 10/28/16 20:08 Dose: 10 mg Metoprolol Succinate (Toprol Xl) 12.5 mg PO DAILY [facility] Tamsulosin HCl (Flomax) 0.4 mg PO DAILY [facility] Temazepam (Restoril) 30 mg PO BEDTIME PRN PRN Reason: Sleep - Exam Quality Assessment: supplemental oxygen, DVT prophylaxis General: alert, oriented, cooperative, no acute distress HEENT: Pupils equal, Pupils reactive, EOMI, Mucous membr. moist/pink Neck: supple Lungs: Clear to auscultation, Normal respiratory effort, Decreased breath sounds (to bases) Cardiovascular: regular rate, regular rhythm Abdomen: bowel sounds present (hyperactive), guarding, tenderness (throughout, worse above umbilicus), distension. No: rigidity, rebound, organomegaly (Male) Exam: Deferred Extremities: no calf tenderness, edema (trace to ankles bilat) Peripheral Pulses: 1+: dorsalis pedis (L), dorsalis pedis (R) Skin: warm, dry, intact Neurological: no new focal deficit Psy/Mental Status: alert, normal affect, normal mood - Problem List Review Problem List Initiated/Reviewed/Updated: Yes - My Orders Last 24 Hours: My Active Orders 10/29/16 08:15 Dextrose 5%-0.45% NaCl [Dextrose 5%-1/2 NS] 1,000 ml IV ASDIRECTED 10/29/16 11:39 Magnesium Rep Pharmacy to Dose [Pharmacy to Dose - Magnesium Replacement] 0 dose .XX ASDIRECTED PRN 10/29/16 11:40 Potassium Rep Pharmacy to Dose [Pharmacy to Dose - Potassium Replacement] 0 dose .XX ASDIRECTED PRN 10/29/16 13:00 Magnesium Sulfate/Water [Magnesium Sulfate 2 GM in Water 50 ML] 2 gm Premix Bag 1 bag IV ONETIME - Plan Plan:: Assessment/Plan: Acute: Pancreatitis - Hx/o Cholecystectomy, Appendectomy and Diverticulitis - He is on Fenofibrates for HLD - CT scan: inflamed pancreas tail - Lipase 91855--->6000range this am - Bj's Criteria: Incomplete no LDH and Triglycerides - Supportive care and Pain Management - NPO except ice chips, sips of water and oral meds - Monitor Lipase Query Colonic Diverticulitis - Stranding Near Tail of Pancreas/Contiguous with Several Diverticuli of the Splenic Flexure - CRP initially normal; slight elevation today - Will start IV ATB: Flagyl and Levaquin - Consult Dr. Sue for further input Chronic: HTN COPD DAMIAN on CPAP-- to bring home CPAP in Chronic Pain Colonic Diverticulosis w/ Hx/o Diverticulitis Hx/o Midline Laparotomy for Spinal Fusion Obesity with BMI of 34.8 Plan: Admit to Med-Surg Routine AM Labs Resume Home Meds Will hold Fenobirates PT/OT consult CM/SW for d/c planning Additional orders as above Code status:1
[2016-10-29] MEDS: Acetaminophen 325 MG Tab PO PRN (16:36)
[2016-10-29] MEDS: Tamsulosin 0.4 MG Cap.ER PO SCH (21:23)
[2016-10-30] MEDS: Acetaminophen 325 MG Tab PO PRN (00:52)
[2016-10-30] MEDS: metroNIDAZOLE/Normal Saline 500 MG in Premix Bag 1 BAG IV SCH ×3 (00:55→17:12)
[2016-10-30] MEDS: Levofloxacin/Dextrose 5%-Water 500 MG in Premix Bag 1 BAG IV SCH (00:55)
[2016-10-30] MEDS: Dextrose 5%-0.45% NaCl 1,000 ML IV SCH (04:14)
[2016-10-30] MEDS: Sucralfate 1 GM Tab PO SCH ×4 (06:12→21:40)
[2016-10-30] MEDS: Pantoprazole 40 MG Tab.CR PO SCH (06:12)
--- NOTE | 2016-10-30 07:58 | PCM.PN ---
- General Info Date of Service: 10/30/16 Admission Dx/Problem (Free Text): Admission Diagnosis/Problem Admission Diagnosis/Problem Pancreatitis Subjective Update: Follow Up Functional Status: Reports: pain controlled, urinating. Denies: new symptoms - Review of Systems General: Denies: fever, weakness, fatigue, malaise, chills, night sweats HEENT: Reports: no symptoms Pulmonary: Denies: shortness of breath, pleuritic chest pain, cough Cardiovascular: Denies: chest pain, palpitations Gastrointestinal: Reports: Flatus, Other (Abdominal Pain with deep breath). Denies: Constipation, Decreased appetite, Diarrhea, Difficulty swallowing, Nausea, Vomiting Genitourinary: Reports: no symptoms Musculoskeletal: Reports: no symptoms Skin: Denies: jaundice, pruritis, rash, other Neurological: Denies: dizziness, syncope, difficulty walking, weakness, gait disturbance Psychiatric: Denies: depression, anxiety, hallucinations Systems Review Comment:: No overnight or acute issues. He no longer peraza a temperature. He states " I feel better". He is passing a little gas but no bowel movement. He has been NPO with ice and sips of water only. His current lipase is 1344. No leukocytosis but CRP is 8 from 1.6. He is currently up shaving his face with his own razor. - Patient Data Vitals - most recent: Last Vital Signs Temp 36.7 C 10/30/16 04:00 Pulse 66 10/30/16 04:00 Resp 15 10/30/16 04:00 BP 125/68 10/30/16 04:00 Pulse Ox 95 10/30/16 04:00 Weight - most recent: 105.37 kg I&O - last 24 hours: Intake & Output 10/29/16 10/30/16 10/30/16 22:59 06:59 14:59 Intake Total 1485 1531 Output Total 1050 950 Balance 435 581 Lab Results last 24 hrs: Laboratory Results - last 24 hr 10/30/16 10/30/16 Range/Units 07:00 07:00 WBC 4.86 (4.23-9.07) K/mm3 RBC 4.67 (4.63-6.08) M/mm3 Hgb 14.1 (13.7-17.5) gm/L Hct 43.9 (40.1-51.0) % MCV 94.0 H (79.0-92.2) fl MCH 30.2 (25.7-32.2) pg MCHC 32.1 L (32.2-35.5) g/dl RDW Std Deviation 48.1 H (35.1-43.9) fL Plt Count 121 L (163-337) K/mm3 MPV 11.4 (9.4-12.3) fl Neut % (Auto) 65.7 (34.0-67.9) % Lymph % (Auto) 20.6 L (21.8-53.1) % [place] % (Auto) 11.7 (5.3-12.2) % Eos % (Auto) 1.4 (0.8-7.0) Baso % (Auto) 0.4 (0.1-1.2) % Neut # 3.19 (1.78-5.38) K/mm3 Lymph # 1.00 L (1.32-3.57) K/mm3 [place] # 0.57 (0.30-0.82) K/mm3 Eos # 0.07 (0.04-0.54) K/mm3 Baso # 0.02 (0.01-0.08) K/mm3 Sodium 141 (136-145) mEq/L Potassium 3.5 (3.5-5.1) mEq/L Chloride 105 (98-107) mEq/L Carbon Dioxide 30 (21-32) mEq/L Anion Gap 9.5 (5-15) BUN 9 (7-18) mg/dL Creatinine 1.4 H (0.7-1.3) mg/dL Est Cr Clr Drug Dosing 42.08 mL/min Estimated GFR (MDRD) 49 (>60) mL/min BUN/Creatinine Ratio 6.4 L (14-18) Glucose 142 H (83-115) mg/dL Calcium 8.2 L (8.5-10.1) mg/dL Magnesium 1.9 (1.8-2.4) mg/dl C-Reactive Protein 8.0 H* (<1.0) mg/dL Lipase 1344 H (73-393) U/L Hamzah Results last 24 hrs: Microbiology 10/29/16 00:55 Aerobic Blood Culture - Preliminary Blood - Venous NO GROWTH AFTER 1 DAY Anaerobic Blood Culture - Preliminary NO GROWTH AFTER 1 DAY 10/29/16 00:45 Aerobic Blood Culture - Preliminary Blood - Venous - Lab Draw NO GROWTH AFTER 1 DAY Anaerobic Blood Culture - Preliminary NO GROWTH AFTER 1 DAY Med Orders - Current: Current Medications Acetaminophen (Tylenol) 650 mg PO Q4H PRN PRN Reason: Pain (Mild 1-3)/fever Last Admin: 10/30/16 00:52 Dose: 650 mg Acetaminophen/Hydrocodone Bitart ([place] 325-5 Mg) 1 tab PO Q4H PRN PRN Reason: Pain (moderate 4-6) Albuterol/Ipratropium (Duoneb 3.0-0.5 Mg/3 Ml) 3 ml NEB Q4H PRN PRN Reason: Shortness Of Breath/wheezing Bisacodyl (Dulcolax) 5 mg PO DAILY PRN PRN Reason: Constipation Docusate Sodium (Colace) 100 mg PO BID PRN PRN Reason: Constipation Enoxaparin Sodium (Lovenox) 40 mg SUBCUT DAILY COUNT INCLUDES THE [facility] Last Admin: 10/29/16 08:12 Dose: 40 mg Fish Oil (Fish Oil) 1 gm PO BID COUNT INCLUDES THE [facility] Last Admin: 10/29/16 21:23 Dose: 1 gm Hydromorphone HCl (Dilaudid) 1 mg IVPUSH Q3H PRN PRN Reason: Pain (severe 7-10) Stop: 11/03/16 23:59 Last Admin: 10/29/16 21:20 Dose: 1 mg Levofloxacin/Dextrose 500 mg/ (Premix) 100 mls @ 100 mls/hr IV Q24H COUNT INCLUDES THE [facility] Last Admin: 10/30/16 00:55 Dose: 100 mls/hr Promethazine HCl 12.5 mg/ (Sodium Chloride) 50.5 mls @ 100 mls/hr IV Q6H PRN PRN Reason: Nausea/Vomiting Metronidazole 500 mg/ Premix 100 mls @ 100 mls/hr IV Q8H COUNT INCLUDES THE [facility] Last Admin: 10/30/16 00:55 Dose: 100 mls/hr Dextrose/Sodium Chloride (Dextrose 5%-1/2 Ns) 1,000 mls @ 125 mls/hr IV ASDIRECTED COUNT INCLUDES THE [facility] Last Admin: 10/30/16 04:14 Dose: 125 mls/hr Lorazepam (Ativan) 0.5 mg IV Q6H PRN PRN Reason: Nausea/Vomiting Magnesium Sulfate (Pharmacy To Dose - Magnesium Replacement) 0 dose .XX ASDIRECTED PRN PRN Reason: RX DOSE Methocarbamol (Robaxin) 750 mg PO BID COUNT INCLUDES THE [facility] Last Admin: 10/29/16 21:25 Dose: 750 mg Metoclopramide HCl (Reglan) 5 mg PO QID COUNT INCLUDES THE [facility] Last Admin: 10/29/16 21:23 Dose: 5 mg Metoprolol Succinate (Toprol Xl) 25 mg PO DAILY COUNT INCLUDES THE [facility] Last Admin: 10/29/16 08:11 Dose: 25 mg Multivitamins (Thera) 1 each PO DAILY COUNT INCLUDES THE [facility] Last Admin: 10/29/16 08:11 Dose: 1 each Ondansetron HCl (Zofran) 4 mg IV Q6H PRN PRN Reason: Nausea/Vomiting Last Admin: 10/29/16 01:01 Dose: 4 mg Pantoprazole Sodium (Protonix) 40 mg PO DAILY@0700 COUNT INCLUDES THE [facility] Last Admin: 10/30/16 06:12 Dose: 40 mg Cranberry [Cranberry (] 400 Mg) 0 each PO DAILY COUNT INCLUDES THE [facility] Last Admin: 10/29/16 08:14 Dose: Not Given Polyethylene Glycol (Miralax) 17 gm PO DAILY PRN PRN Reason: Constipation Potassium Chloride (Pharmacy To Dose - Potassium Replacement) 0 dose .XX ASDIRECTED PRN PRN Reason: RX DOSE Pregabalin (Lyrica) 150 mg PO BID COUNT INCLUDES THE [facility] Last Admin: 10/29/16 21:23 Dose: 150 mg Senna/Docusate Sodium (Senna Plus) 1 tab PO BID PRN PRN Reason: Constipation Sucralfate (Carafate) 1 gm PO QIDACANDBED COUNT INCLUDES THE [facility] Last Admin: 10/30/16 06:12 Dose: 1 gm Tamsulosin HCl (Flomax) 0.4 mg PO BEDTIME COUNT INCLUDES THE [facility] Last Admin: 10/29/16 21:23 Dose: 0.4 mg Temazepam (Restoril) 30 mg PO BEDTIME PRN PRN Reason: Sleep Vit A/Vit C/Vit E/Selen/Cu/Zn/Lutei (Icaps Mv) 1 tab PO DAILY COUNT INCLUDES THE [facility] Last Admin: 10/29/16 08:11 Dose: 1 tab Discontinued Medications Diatrizoate Meglum/Diatrizoate Sod (Gastrografin 37%) 120 ml PO ONETIME ONE Stop: 02/23/17 22:03 Hydromorphone HCl (Dilaudid) 1 mg IVPUSH ONETIME ONE Stop: 10/28/16 20:00 Last Admin: 10/28/16 20:09 Dose: 1 mg Hydromorphone HCl (Dilaudid) 0.5 mg IVPUSH ONETIME ONE Stop: 10/28/16 20:59 Last Admin: 10/28/16 21:06 Dose: 0.5 mg Sodium Chloride (Normal Saline) 1,000 mls @ 200 mls/hr IV ONETIME ONE Stop: 10/29/16 00:58 Last Admin: 10/28/16 20:07 Dose: 200 mls/hr Dextrose/Sodium Chloride (Dextrose 5%-1/2 Ns) 1,000 mls @ 125 mls/hr IV ASDIRECTED TA Last Admin: 10/29/16 01:05 Dose: 125 mls/hr Magnesium Sulfate 2 gm/ Premix 50 mls @ 25 mls/hr IV ONETIME ONE Stop: 10/29/16 14:59 Last Admin: 10/29/16 12:16 Dose: 25 mls/hr Iopamidol (Isovue-370 (76%)) 100 ml IVPUSH ONETIME ONE Stop: 10/28/16 22:02 Metoclopramide HCl (Reglan) 10 mg IVPUSH ONETIME ONE Stop: 10/28/16 20:00 Last Admin: 10/28/16 20:08 Dose: 10 mg Metoprolol Succinate (Toprol Xl) 12.5 mg PO DAILY COUNT INCLUDES THE [facility] Tamsulosin HCl (Flomax) 0.4 mg PO DAILY COUNT INCLUDES THE [facility] Temazepam (Restoril) 30 mg PO BEDTIME PRN PRN Reason: Sleep - Exam Quality Assessment: No: supplemental oxygen General: alert, oriented, cooperative, no acute distress HEENT: Pupils equal, Pupils reactive, EOMI, Mucous membr. moist/pink Neck: supple, trachea midline, no JVD, no thyromegaly Lungs: Clear to auscultation, Normal respiratory effort Cardiovascular: regular rhythm Abdomen: bowel sounds present, soft, no tenderness, distension, other (tight). No: rigidity, rebound, guarding, tenderness (Male) Exam: Deferred Back Exam: normal inspection, decreased range of motion Extremities: no edema, normal pulses, no tenderness/swelling, no clubbing, no cyanosis, no calf tenderness Peripheral Pulses: 2+: dorsalis pedis (L), dorsalis pedis (R) Skin: warm, dry, intact Neurological: no new focal deficit Psy/Mental Status: alert, normal affect, normal mood - Problem List Review Problem List Initiated/Reviewed/Updated: Yes - My Orders Last 24 Hours: My Active Orders 10/29/16 07:00 Pantoprazole [Protonix] 40 mg PO DAILY@0700 Sucralfate [Carafate] 1 gm PO QIDACANDBED 10/29/16 09:00 Enoxaparin [Lovenox] 40 mg SUBCUT DAILY Fish Oil/[place]-3 Fatty Acids [Fish Oil] 1 gm PO BID Methocarbamol [Robaxin] 750 mg PO BID Metoclopramide [Reglan] 5 mg PO QID Metoprolol Succinate [Toprol XL] 25 mg PO DAILY Multivitamins,Therapeutic [Thera] 1 each PO DAILY Multivitamins/Min/FA/Lut/Zeax [ICaps MV] 1 tab PO DAILY Patient's Own Medication [Ptom] 0 each PO DAILY Pregabalin [Lyrica] 150 mg PO BID 10/29/16 10:34 Temazepam [Restoril] 30 mg PO BEDTIME PRN 10/29/16 17:04 RT Incentive Spirometry [RC] ASDIRECTED 10/29/16 21:00 Tamsulosin [Flomax] 0.4 mg PO BEDTIME 10/29/16 Breakfast Nothing per Oral Now Diet [DIET] 10/31/16 05:11 BASIC METABOLIC PANEL,BMP [CHEM] AM C-REACTIVE PROTEIN [CHEM] AM CBC WITH AUTO DIFF [HEME] AM LIPASE [CHEM] AM MAGNESIUM [CHEM] AM 11/01/16 05:11 BASIC METABOLIC PANEL,BMP [CHEM] AM C-REACTIVE PROTEIN [CHEM] AM CBC WITH AUTO DIFF [HEME] AM LIPASE [CHEM] AM MAGNESIUM [CHEM] AM 11/02/16 05:11 BASIC METABOLIC PANEL,BMP [CHEM] AM CBC WITH AUTO DIFF [HEME] AM LIPASE [CHEM] AM MAGNESIUM [CHEM] AM 11/03/16 05:11 BASIC METABOLIC PANEL,BMP [CHEM] AM CBC WITH AUTO DIFF [HEME] AM LIPASE [CHEM] AM MAGNESIUM [CHEM] AM - Plan Plan:: Assessment/Plan: Acute: Pancreatitis - Hx/o Cholecystectomy, Appendectomy and Diverticulitis - He is on Fenofibrates for HLD - CT scan: inflamed pancreas tail - Lipase 18869---> 6013---> 1344 - [facility] Criteria: Incomplete no LDH and Triglycerides, does not meet criteria now as it has been over 24 hrs - Supportive care and Pain Management - NPO except ice chips, sips of water and oral meds - Monitor Lipase Query Colonic Diverticulitis - Stranding Near Tail of Pancreas/Contiguous with Several Diverticuli of the Splenic Flexure - CRP initially normal, now 8 (1.6 yesterday) - Continue IV Flagyl and Levaquin - Consult Dr. Sue for further input Chronic: HTN COPD DAMIAN on CPAP Chronic Pain Colonic Diverticulosis w/ Hx/o Diverticulitis Hx/o Midline Laparotomy for Spinal Fusion Obesity with BMI of 34.8 Plan: He is clinically stable at this time Continue current treatment Routine AM Labs KUB and Start clear liquid diet Advance diet as tolerated Continue PT/OT CM/SW for d/c planning Additional orders as above Code status:1
[2016-10-30] MEDS ORDERED: Magnesium Sulfate/Water 2 GM in Premix Bag 1 BAG IV ONE (09:00)
[2016-10-30] MEDS: Fish Oil/Omega-3 Fatty Acids 1 Gm Cap PO SCH ×2 (09:27→21:38)
[2016-10-30] MEDS: Multivitamins with Minerals/Folic Acid/Lutein/Zeaxanth Tab PO SCH (09:27)
[2016-10-30] MEDS: Multivitamins,Therapeutic Tab PO SCH (09:27)
[2016-10-30] MEDS: Cranberry [Cranberry] 400 MG PO SCH (09:27)
[2016-10-30] MEDS: Metoprolol Succinate 25 MG Tab.ER PO SCH (09:27)
[2016-10-30] MEDS: Metoclopramide 5 MG Tab PO SCH ×4 (09:28→21:40)
[2016-10-30] MEDS: Methocarbamol 500 MG Tab PO SCH ×2 (09:28→21:39)
[2016-10-30] MEDS: Pregabalin 75 MG Cap PO SCH ×2 (09:28→21:39)
[2016-10-30] MEDS: Enoxaparin 40 MG/0.4 ML Syringe SUBCUT SCH (09:32)
--- NOTE | 2016-10-30 11:04 | CR ---
Abdomen: Supine view of the abdomen was obtained. Comparison: Previous abdominal x-ray of 10/28/16. Extensive lumbar spine surgery is noted. Degenerative change is seen within other portions of the visualized spine. Contrast and gas noted within the colon which is unremarkable. Calcifications are seen within the pelvis which are compatible with phleboliths. Impression: 1. Incidental findings. Diagnostic code #2
[2016-10-30] MEDS ORDERED: Sodium Chloride 0.9% 10 ML Syringe FLUSH PRN (18:32)
[2016-10-30] MEDS: Temazepam 30 MG Cap PO PRN (21:40)
[2016-10-30] MEDS: Tamsulosin 0.4 MG Cap.ER PO SCH (21:41)
[2016-10-31] MEDS: metroNIDAZOLE/Normal Saline 500 MG in Premix Bag 1 BAG IV SCH ×3 (01:00→16:10)
[2016-10-31] MEDS: Levofloxacin/Dextrose 5%-Water 500 MG in Premix Bag 1 BAG IV SCH (01:00)
[2016-10-31] MEDS: Pantoprazole 40 MG Tab.CR PO SCH (06:29)
[2016-10-31] MEDS: Sucralfate 1 GM Tab PO SCH ×5 (06:29→21:15)
--- NOTE | 2016-10-31 07:37 | PCM.PN ---
- General Info Date of Service: 10/31/16 Admission Dx/Problem (Free Text): Admission Diagnosis/Problem Admission Diagnosis/Problem Pancreatitis Subjective Update: Follow Up Functional Status: Reports: pain controlled, tolerating diet, ambulating, urinating. Denies: new symptoms - Review of Systems General: Denies: fever, weakness, fatigue, malaise, chills HEENT: Reports: no symptoms Pulmonary: Denies: shortness of breath Cardiovascular: Denies: chest pain, palpitations, dyspnea on exertion Gastrointestinal: Reports: Other (Abdominal discomfort with deep breath). Denies: Abdominal pain, Nausea, Vomiting Genitourinary: Reports: no symptoms Musculoskeletal: Reports: no symptoms Skin: Reports: no symptoms Neurological: Denies: confusion, difficulty walking, gait disturbance Psychiatric: Denies: depression, anxiety Systems Review Comment:: No overnight or acute issues. His abdominal pain is 90%. He had a regular bowel movement this am. He is passing gas. He rested well overnight. He is afebrile w/ o leukocytosis. B si fairly controlled. CRP is 6.8 and Lipase is now 761. - Patient Data Vitals - most recent: Last Vital Signs Temp 36.7 C 10/31/16 04:00 Pulse 62 10/31/16 04:00 Resp 17 10/31/16 04:00 BP 150/78 H 10/31/16 04:00 Pulse Ox 99 10/31/16 04:00 Weight - most recent: 105.642 kg I&O - last 24 hours: Intake & Output 10/30/16 10/31/16 10/31/16 22:59 06:59 14:59 Intake Total 2340 350 Output Total 550 1000 Balance 1790 -650 Lab Results last 24 hrs: Laboratory Results - last 24 hr 10/30/16 10/31/16 10/31/16 Range/Units 07:00 04:42 04:52 WBC 5.28 (4.23-9.07) K/mm3 RBC 4.78 (4.63-6.08) M/mm3 Hgb 14.7 (13.7-17.5) gm/L Hct 44.4 (40.1-51.0) % MCV 92.9 H (79.0-92.2) fl MCH 30.8 (25.7-32.2) pg MCHC 33.1 (32.2-35.5) g/dl RDW Std Deviation 47.3 H (35.1-43.9) fL Plt Count 115 L (163-337) K/mm3 MPV 11.7 (9.4-12.3) fl Neut % (Auto) 59.2 (34.0-67.9) % Lymph % (Auto) 24.1 (21.8-53.1) % [place] % (Auto) 13.6 H (5.3-12.2) % Eos % (Auto) 2.5 (0.8-7.0) Baso % (Auto) 0.6 (0.1-1.2) % Neut # 3.13 (1.78-5.38) K/mm3 Lymph # 1.27 L (1.32-3.57) K/mm3 [place] # 0.72 (0.30-0.82) K/mm3 Eos # 0.13 (0.04-0.54) K/mm3 Baso # 0.03 (0.01-0.08) K/mm3 Sodium 141 143 (136-145) mEq/L Potassium 3.5 3.6 (3.5-5.1) mEq/L Chloride 105 106 (98-107) mEq/L Carbon Dioxide 30 29 (21-32) mEq/L Anion Gap 9.5 11.6 (5-15) BUN 9 9 (7-18) mg/dL Creatinine 1.4 H 1.2 (0.7-1.3) mg/dL Est Cr Clr Drug Dosing 42.08 49.10 mL/min Estimated GFR (MDRD) 49 58 (>60) mL/min BUN/Creatinine Ratio 6.4 L 7.5 L (14-18) Glucose 142 H 125 H (83-115) mg/dL Calcium 8.2 L 8.5 (8.5-10.1) mg/dL Magnesium 1.9 2.0 (1.8-2.4) mg/dl C-Reactive Protein 8.0 H* 6.8 H* (<1.0) mg/dL Lipase 1344 H 761 H (73-393) U/L Hamzah Results last 24 hrs: Microbiology 10/29/16 00:55 Aerobic Blood Culture - Preliminary Blood - Venous NO GROWTH AFTER 2 DAYS Anaerobic Blood Culture - Preliminary NO GROWTH AFTER 2 DAYS 10/29/16 00:45 Aerobic Blood Culture - Preliminary Blood - Venous - Lab Draw NO GROWTH AFTER 2 DAYS Anaerobic Blood Culture - Preliminary NO GROWTH AFTER 2 DAYS Med Orders - Current: Current Medications Acetaminophen (Tylenol) 650 mg PO Q4H PRN PRN Reason: Pain (Mild 1-3)/fever Last Admin: 10/30/16 00:52 Dose: 650 mg Acetaminophen/Hydrocodone Bitart ([place] 325-5 Mg) 1 tab PO Q4H PRN PRN Reason: Pain (moderate 4-6) Albuterol/Ipratropium (Duoneb 3.0-0.5 Mg/3 Ml) 3 ml NEB Q4H PRN PRN Reason: Shortness Of Breath/wheezing Bisacodyl (Dulcolax) 5 mg PO DAILY PRN PRN Reason: Constipation Docusate Sodium (Colace) 100 mg PO BID PRN PRN Reason: Constipation Enoxaparin Sodium (Lovenox) 40 mg SUBCUT DAILY [facility] Last Admin: 10/30/16 09:32 Dose: 40 mg Fish Oil (Fish Oil) 1 gm PO BID [facility] Last Admin: 10/30/16 21:38 Dose: 1 gm Hydromorphone HCl (Dilaudid) 1 mg IVPUSH Q3H PRN PRN Reason: Pain (severe 7-10) Stop: 11/03/16 23:59 Last Admin: 10/29/16 21:20 Dose: 1 mg Levofloxacin/Dextrose 500 mg/ (Premix) 100 mls @ 100 mls/hr IV Q24H [facility] Last Admin: 10/31/16 01:00 Dose: 100 mls/hr Promethazine HCl 12.5 mg/ (Sodium Chloride) 50.5 mls @ 100 mls/hr IV Q6H PRN PRN Reason: Nausea/Vomiting Metronidazole 500 mg/ Premix 100 mls @ 100 mls/hr IV Q8H [facility] Last Admin: 10/31/16 01:00 Dose: 100 mls/hr Lorazepam (Ativan) 0.5 mg IV Q6H PRN PRN Reason: Nausea/Vomiting Magnesium Sulfate (Pharmacy To Dose - Magnesium Replacement) 0 dose .XX ASDIRECTED PRN PRN Reason: RX DOSE Methocarbamol (Robaxin) 750 mg PO BID [facility] Last Admin: 10/30/16 21:39 Dose: 750 mg Metoclopramide HCl (Reglan) 5 mg PO QID [facility] Last Admin: 10/30/16 21:40 Dose: 5 mg Metoprolol Succinate (Toprol Xl) 25 mg PO DAILY [facility] Last Admin: 10/30/16 09:27 Dose: 25 mg Multivitamins (Thera) 1 each PO DAILY [facility] Last Admin: 10/30/16 09:27 Dose: 1 each Ondansetron HCl (Zofran) 4 mg IV Q6H PRN PRN Reason: Nausea/Vomiting Last Admin: 10/29/16 01:01 Dose: 4 mg Pantoprazole Sodium (Protonix) 40 mg PO DAILY@0700 [facility] Last Admin: 10/31/16 06:29 Dose: 40 mg Cranberry [Cranberry (] 400 Mg) 0 each PO DAILY [facility] Last Admin: 10/30/16 09:27 Dose: Not Given Polyethylene Glycol (Miralax) 17 gm PO DAILY PRN PRN Reason: Constipation Potassium Chloride (Pharmacy To Dose - Potassium Replacement) 0 dose .XX ASDIRECTED PRN PRN Reason: RX DOSE Pregabalin (Lyrica) 150 mg PO BID [facility] Last Admin: 10/30/16 21:39 Dose: 150 mg Senna/Docusate Sodium (Senna Plus) 1 tab PO BID PRN PRN Reason: Constipation Sodium Chloride (Saline Flush) 10 ml FLUSH ASDIRECTED PRN PRN Reason: Keep Vein Open Sucralfate (Carafate) 1 gm PO QIDACANDBED [facility] Last Admin: 10/31/16 06:29 Dose: 1 gm Tamsulosin HCl (Flomax) 0.4 mg PO BEDTIME [facility] Last Admin: 10/30/16 21:41 Dose: 0.4 mg Temazepam (Restoril) 30 mg PO BEDTIME PRN PRN Reason: Sleep Last Admin: 10/30/16 21:40 Dose: 30 mg Vit A/Vit C/Vit E/Selen/Cu/Zn/Lutei (Icaps Mv) 1 tab PO DAILY [facility] Last Admin: 10/30/16 09:27 Dose: 1 tab Discontinued Medications Diatrizoate Meglum/Diatrizoate Sod (Gastrografin 37%) 120 ml PO ONETIME ONE Stop: 10/28/16 22:03 Hydromorphone HCl (Dilaudid) 1 mg IVPUSH ONETIME ONE Stop: 10/28/16 20:00 Last Admin: 10/28/16 20:09 Dose: 1 mg Hydromorphone HCl (Dilaudid) 0.5 mg IVPUSH ONETIME ONE Stop: 10/28/16 20:59 Last Admin: 10/28/16 21:06 Dose: 0.5 mg Sodium Chloride (Normal Saline) 1,000 mls @ 200 mls/hr IV ONETIME ONE Stop: 10/29/16 00:58 Last Admin: 10/28/16 20:07 Dose: 200 mls/hr Dextrose/Sodium Chloride (Dextrose 5%-1/2 Ns) 1,000 mls @ 125 mls/hr IV ASDIRECTED [facility] Last Admin: 10/29/16 01:05 Dose: 125 mls/hr Dextrose/Sodium Chloride (Dextrose 5%-1/2 Ns) 1,000 mls @ 125 mls/hr IV ASDIRECTED [facility] Last Admin: 10/30/16 04:14 Dose: 125 mls/hr Magnesium Sulfate 2 gm/ Premix 50 mls @ 25 mls/hr IV ONETIME ONE Stop: 10/29/16 14:59 Last Admin: 10/29/16 12:16 Dose: 25 mls/hr Magnesium Sulfate 2 gm/ Premix 50 mls @ 50 mls/hr IV ONETIME ONE Stop: 10/30/16 09:59 Last Admin: 10/30/16 09:28 Dose: 50 mls/hr Iopamidol (Isovue-370 (76%)) 100 ml IVPUSH ONETIME ONE Stop: 10/28/16 22:02 Metoclopramide HCl (Reglan) 10 mg IVPUSH ONETIME ONE Stop: 10/28/16 20:00 Last Admin: 10/28/16 20:08 Dose: 10 mg Metoprolol Succinate (Toprol Xl) 12.5 mg PO DAILY TA Tamsulosin HCl (Flomax) 0.4 mg PO DAILY TA Temazepam (Restoril) 30 mg PO BEDTIME PRN PRN Reason: Sleep - Exam General: alert, oriented, cooperative, no acute distress HEENT: Pupils equal, Pupils reactive, EOMI, Mucous membr. moist/pink Neck: supple, trachea midline, no JVD Lungs: Clear to auscultation, Normal respiratory effort, Decreased breath sounds Cardiovascular: regular rate, regular rhythm Abdomen: bowel sounds present, soft, no tenderness, no distension, abnormal bowel sounds (hyperactive bowel) (Male) Exam: Deferred Back Exam: normal inspection, decreased range of motion Extremities: no edema, normal pulses, no tenderness/swelling, no clubbing, no cyanosis, no calf tenderness Peripheral Pulses: 2+: dorsalis pedis (L), dorsalis pedis (R) Skin: warm, dry, intact Wound/Incisions: healing well Neurological: no new focal deficit Psy/Mental Status: alert, normal affect, normal mood - Problem List Review Problem List Initiated/Reviewed/Updated: Yes - My Orders Last 24 Hours: My Active Orders 10/30/16 15:00 Convert IV to Saline Lock [OM.PC] Routine 10/30/16 18:32 Sodium Chloride 0.9% [Saline Flush] 10 ml FLUSH ASDIRECTED PRN 10/31/16 Breakfast Regular Diet [DIET] 11/01/16 05:11 BASIC METABOLIC PANEL,BMP [CHEM] AM C-REACTIVE PROTEIN [CHEM] AM CBC WITH AUTO DIFF [HEME] AM LIPASE [CHEM] AM MAGNESIUM [CHEM] AM 11/02/16 05:11 BASIC METABOLIC PANEL,BMP [CHEM] AM CBC WITH AUTO DIFF [HEME] AM LIPASE [CHEM] AM MAGNESIUM [CHEM] AM 11/03/16 05:11 BASIC METABOLIC PANEL,BMP [CHEM] AM CBC WITH AUTO DIFF [HEME] AM LIPASE [CHEM] AM MAGNESIUM [CHEM] AM - Plan Plan:: Assessment/Plan: Acute: Pancreatitis - Hx/o Cholecystectomy, Appendectomy and Diverticulitis - He is on Fenofibrates for HLD - CT scan: inflamed pancreas tail - Lipase 69924---> 6013---> 1344--> 761 - [place]'s Criteria: Incomplete no LDH and Triglycerides, does not meet criteria now as it has been over 24 hrs - Supportive care and Pain Management - NPO except ice chips, sips of water and oral meds - Monitor Lipase Query Colonic Diverticulitis - Stranding Near Tail of Pancreas/Contiguous with Several Diverticuli of the Splenic Flexure - CRP initially normal, now 8 (1.6 yesterday) - Continue IV Flagyl and Levaquin - Consult Dr. Sue for further input Chronic: HTN COPD DAMIAN on CPAP Chronic Pain Colonic Diverticulosis w/ Hx/o Diverticulitis Hx/o Midline Laparotomy for Spinal Fusion Obesity with BMI of 34.8 Plan: He remains clinically stable Continue current treatment Routine AM Labs Advance diet as tolerated Continue PT/OT CM/SW for d/c planning Additional orders as above Code status:1 LOS anticipate > 96hrs, he may require more time with current treatment
[2016-10-31] MEDS: Enoxaparin 40 MG/0.4 ML Syringe SUBCUT SCH (08:05)
[2016-10-31] MEDS: Fish Oil/Omega-3 Fatty Acids 1 Gm Cap PO SCH ×2 (08:05→20:42)
[2016-10-31] MEDS: Metoprolol Succinate 25 MG Tab.ER PO SCH (08:06)
[2016-10-31] MEDS: Multivitamins,Therapeutic Tab PO SCH (08:08)
[2016-10-31] MEDS: Multivitamins with Minerals/Folic Acid/Lutein/Zeaxanth Tab PO SCH (08:08)
[2016-10-31] MEDS: Pregabalin 75 MG Cap PO SCH ×2 (08:08→20:43)
[2016-10-31] MEDS: Metoclopramide 5 MG Tab PO SCH ×4 (08:09→20:43)
[2016-10-31] MEDS: Cranberry [Cranberry] 400 MG PO SCH (08:09)
[2016-10-31] MEDS: Methocarbamol 500 MG Tab PO SCH ×2 (08:10→20:44)
[2016-10-31] MEDS: Tamsulosin 0.4 MG Cap.ER PO SCH (20:43)
[2016-11-01] MEDS: Temazepam 30 MG Cap PO PRN (00:34)
[2016-11-01] MEDS: Levofloxacin/Dextrose 5%-Water 500 MG in Premix Bag 1 BAG IV SCH (00:35)
[2016-11-01] MEDS: metroNIDAZOLE/Normal Saline 500 MG in Premix Bag 1 BAG IV SCH ×2 (00:36→09:46)
[2016-11-01] MEDS: Pantoprazole 40 MG Tab.CR PO SCH (06:43)
[2016-11-01] MEDS: Sucralfate 1 GM Tab PO SCH (06:43)
[2016-11-01] MEDS: Pregabalin 75 MG Cap PO SCH (09:44)
[2016-11-01] MEDS: Metoprolol Succinate 25 MG Tab.ER PO SCH (09:44)
[2016-11-01] MEDS: Multivitamins with Minerals/Folic Acid/Lutein/Zeaxanth Tab PO SCH (09:45)
[2016-11-01] MEDS: Fish Oil/Omega-3 Fatty Acids 1 Gm Cap PO SCH (09:45)
[2016-11-01] MEDS: Multivitamins,Therapeutic Tab PO SCH (09:45)
[2016-11-01] MEDS: Metoclopramide 5 MG Tab PO SCH (09:46)
[2016-11-01] MEDS: Enoxaparin 40 MG/0.4 ML Syringe SUBCUT SCH (09:48)
[2016-11-01] MEDS: Methocarbamol 500 MG Tab PO SCH (09:50)
[2016-11-01] MEDS ORDERED: Magnesium Oxide 400 MG Tab PO ONE (10:30)
[2016-11-01] MEDS ORDERED: Magnesium Sulfate/Water 2 GM in Premix Bag 1 BAG IV ONE (11:00)
--- NOTE | 2016-11-01 12:36 | PCM.DCSUM1 ---
Discharge Summary - Hospital Course Free Text/Narrative:: This is an 81 yo elderly white male with past medical hx/o HTN, COPD, DAMIAN on CPAP, Chronic Pain, Colonic Diverticulosis, and Obesity who comes in with complains of diffuse abdominal pain. His symptom started post-prandial, lunch time today. He describes his pain as sharp, stabbing with radiation to his mid back. His pain is constant and colicky in nature. His chief of complaint is associated with reduced appetite, malaise, bloating, distention, nausea and vomiting (partially undigested food and bilious material). His pain is aggravated by taking deep breaths and is somewhat improved with TUMS. His most recent bowel movement was earlier today. Patient carries a hx/o Cholecystectomy, Appendectomy, Diverticulitis and Laparotomy S/p Spinal Fusion. He denies any recent sick contact, no bad drinks or unusual food, no recent travel outside the country, and no recent surgery or trauma. His initial ED work up shows CBC remarkable for platelet level of 154. His chemistry is significant for Cr 1.4, BUN 17, BS 124, AST 128, ALT 91 and Lipase 81097. LA 0.8, Alk Phos 51, Troponin x1 < 0.017, CRP 0.3, BNP 52, INT 1.03. His UA is negative for UTI. CXR shows no acute abnormal findings. Abdomen/Pelvis CT scan shows inflamed pancreatic as well as stranding at the splenic flexure which may be suggestive for colonic diverticulitis. Patient as referred to me for Acute Pancreatitis and Possible Colonic Diverticulitis. He is full code. He was admitted, treated with IV fluids for rehydration, antiemetics and essentially kept NPO until lipase was down. He was then advanced with his diet which he did tolerate very well. He was treated with Levaquin and Flagyl for diverticulitis with good response. He worked with PT/OT for strengthening, did well with them. He was tolerating diet well, tolerating medications well. He will will be discharged home on oral antibiotics with follow up with his PCP within 5-7 days of discharge. - Discharge Data Discharge Date: 11/01/16 (admit date 10/28/16) Discharge Disposition: Home, Self-Care 01 Condition: Good - Patient Summary/Data Operative Procedure(s) Performed: None Complications: None Consults: Consultations 10/29/16 00:21 Consult to Case Management [CONS] Routine Consult to Environmental Epidemiologist [CONS] Routine OT Evaluation and Treatment [CONS] Routine PT Evaluation and Treatment [CONS] Routine Labs Pending at D/C: None Recommended Follow-up Testing/Procedures: None; f/up with PCP, Dr. Guerrero within 5-7 days of discharge Planned Operative Procedure(s) after DC: None Hospital Course: As above - Patient Instructions Diet: Heart Healthy Diet, Low Sodium, Drink 8-10+ Glasses/Day, GI Soft/Low Residue/Low Fiber (then slowly advance as tolerated) Activity: As Tolerated Driving: Do Not Drive (May drive tomorrow) Showering/Bathing: May Shower Notify Provider of: Fever, Increased Pain, Nausea and/or Vomiting - Discharge Plan Prescriptions/Med Rec: Acetaminophen/HYDROcodone [Dawson 325-5 MG] 1 tab PO Q4H PRN #30 tablet PRN Reason: Pain Levofloxacin [Levaquin] 500 mg PO Q24H #7 tablet metroNIDAZOLE [Flagyl] 500 mg PO TID #21 tablet Home Medications: Home Meds Acetaminophen [Tylenol Arthritis] 1,300 mg PO BID PRN 10/28/16 [History] B2/Vit A,C & E/Lut/Zeaxanth/Mn [Icaps] 1 cap PO DAILY 10/28/16 [History] Cranberry 400 mg PO DAILY 10/28/16 [History] Fenofibric Acid (Choline) [Trilipix] 135 mg PO BEDTIME 10/28/16 [History] Fish Oil/[place]-3 Fatty Acids [Fish Oil 1,000 MG] 1 gm PO BID 10/28/16 [History] Methocarbamol [Robaxin-750] 750 mg PO BID 10/28/16 [History] Metoclopramide HCl 10 mg PO BID 10/28/16 [History] Metoprolol Succinate [Toprol XL] 25 mg PO DAILY 10/28/16 [History] Multivitamin [Multivitamins] 1 tab PO DAILY 10/28/16 [History] Omeprazole 20 mg PO BID 10/28/16 [History] Pregabalin [Lyrica] 150 mg PO BID 10/28/16 [History] Sucralfate 2 gram PO BID 10/28/16 [History] Tamsulosin [Flomax] 0.4 mg PO BEDTIME 10/28/16 [History] traMADol HCl [Ultram] 100 mg PO BID 10/28/16 [History] Glucosa Roe 2KCl/Chondroitin Roe [Glucosamine Chondroitin Caplet] 1 tab PO DAILY 10/29/16 [History] Acetaminophen/HYDROcodone [Dawson 325-5 MG] 1 tab PO Q4H PRN #30 tablet 11/01/16 [Rx] Levofloxacin [Levaquin] 500 mg PO Q24H #7 tablet 11/01/16 [Rx] metroNIDAZOLE [Flagyl] 500 mg PO TID #21 tablet 11/01/16 [Rx] Patient Handouts: Acute Pancreatitis, [id number] Forms: ED Department Discharge Referrals: Dong Guerrero MD [Primary Care Provider] - 11/08/16 1:00 pm - Discharge Summary/Plan Comment DC Time >30 min.: Yes (40 min) - General Info Date of Service: 11/01/16 Admission Dx/Problem (Free Text: Admission Diagnosis/Problem Admission Diagnosis/Problem Pancreatitis Doing very well this morning; minimal complaints of abd pain. Afebrile; VSS; tolerating diet. Functional Status: Reports: pain controlled, tolerating diet, ambulating, urinating. Denies: new symptoms - Review of Systems General: Reports: no symptoms HEENT: Reports: no symptoms Pulmonary: Reports: no symptoms Cardiovascular: Reports: no symptoms Gastrointestinal: Reports: No symptoms Genitourinary: Reports: no symptoms Musculoskeletal: Reports: no symptoms Skin: Reports: no symptoms Neurological: Reports: no symptoms Psychiatric: Reports: no symptoms - Patient Data Vitals - Most Recent: Last Vital Signs Temp 97.5 F 11/01/16 09:20 Pulse 104 H 11/01/16 09:44 Resp 16 11/01/16 09:20 BP 132/90 11/01/16 09:44 Pulse Ox 97 11/01/16 09:20 Weight - Most Recent: 231 lb 14.821 oz I&O - Last 24 hours: Intake & Output 10/31/16 11/01/16 11/01/16 22:59 06:59 14:59 Intake Total 1340 600 210 Output Total 950 550 Balance 390 50 210 Lab Results - Last 24 hrs: Laboratory Results - last 24 hr 11/01/16 11/01/16 Range/Units 06:39 06:39 WBC 3.93 L (4.23-9.07) K/mm3 RBC 5.01 (4.63-6.08) M/mm3 Hgb 15.2 (13.7-17.5) gm/L Hct 46.1 (40.1-51.0) % MCV 92.0 (79.0-92.2) fl MCH 30.3 (25.7-32.2) pg MCHC 33.0 (32.2-35.5) g/dl RDW Std Deviation 46.1 H (35.1-43.9) fL Plt Count 124 L (163-337) K/mm3 MPV 11.9 (9.4-12.3) fl Neut % (Auto) 50.6 (34.0-67.9) % Lymph % (Auto) 27.2 (21.8-53.1) % [place] % (Auto) 16.0 H (5.3-12.2) % Eos % (Auto) 5.1 (0.8-7.0) Baso % (Auto) 0.8 (0.1-1.2) % Neut # 1.99 (1.78-5.38) K/mm3 Lymph # 1.07 L (1.32-3.57) K/mm3 [place] # 0.63 (0.30-0.82) K/mm3 Eos # 0.20 (0.04-0.54) K/mm3 Baso # 0.03 (0.01-0.08) K/mm3 Manual Slide Review Normal smear Sodium 144 (136-145) mEq/L Potassium 3.6 (3.5-5.1) mEq/L Chloride 107 (98-107) mEq/L Carbon Dioxide 28 (21-32) mEq/L Anion Gap 12.6 (5-15) BUN 11 (7-18) mg/dL Creatinine 1.1 (0.7-1.3) mg/dL Est Cr Clr Drug Dosing 53.56 mL/min Estimated GFR (MDRD) > 60 (>60) mL/min BUN/Creatinine Ratio 10.0 L (14-18) Glucose 122 H (83-115) mg/dL Calcium 8.8 (8.5-10.1) mg/dL Magnesium 1.8 (1.8-2.4) mg/dl C-Reactive Protein 3.9 H* (<1.0) mg/dL Lipase 562 H (73-393) U/L LISA Results - Last 24 hrs: Microbiology 10/29/16 00:55 Aerobic Blood Culture - Preliminary Blood - Venous NO GROWTH AFTER 3 DAYS Anaerobic Blood Culture - Preliminary NO GROWTH AFTER 3 DAYS 10/29/16 00:45 Aerobic Blood Culture - Preliminary Blood - Venous - Lab Draw NO GROWTH AFTER 3 DAYS Anaerobic Blood Culture - Preliminary NO GROWTH AFTER 3 DAYS Med Orders - Current: Current Medications Acetaminophen (Tylenol) 650 mg PO Q4H PRN PRN Reason: Pain (Mild 1-3)/fever Last Admin: 10/30/16 00:52 Dose: 650 mg Acetaminophen/Hydrocodone Bitart (Dawson 325-5 Mg) 1 tab PO Q4H PRN PRN Reason: Pain (moderate 4-6) Last Admin: 11/01/16 00:34 Dose: 1 tab Albuterol/Ipratropium (Duoneb 3.0-0.5 Mg/3 Ml) 3 ml NEB Q4H PRN PRN Reason: Shortness Of Breath/wheezing Bisacodyl (Dulcolax) 5 mg PO DAILY PRN PRN Reason: Constipation Docusate Sodium (Colace) 100 mg PO BID PRN PRN Reason: Constipation Last Admin: 10/31/16 08:05 Dose: 100 mg Enoxaparin Sodium (Lovenox) 40 mg SUBCUT DAILY [facility] Last Admin: 11/01/16 09:48 Dose: 40 mg Fish Oil (Fish Oil) 1 gm PO BID [facility] Last Admin: 11/01/16 09:45 Dose: 1 gm Hydromorphone HCl (Dilaudid) 1 mg IVPUSH Q3H PRN PRN Reason: Pain (severe 7-10) Stop: 11/03/16 23:59 Last Admin: 10/29/16 21:20 Dose: 1 mg Levofloxacin/Dextrose 500 mg/ (Premix) 100 mls @ 100 mls/hr IV Q24H [facility] Last Admin: 11/01/16 00:35 Dose: 100 mls/hr Promethazine HCl 12.5 mg/ (Sodium Chloride) 50.5 mls @ 100 mls/hr IV Q6H PRN PRN Reason: Nausea/Vomiting Metronidazole 500 mg/ Premix 100 mls @ 100 mls/hr IV Q8H [facility] Last Admin: 11/01/16 09:46 Dose: 100 mls/hr Lorazepam (Ativan) 0.5 mg IV Q6H PRN PRN Reason: Nausea/Vomiting Magnesium Sulfate (Pharmacy To Dose - Magnesium Replacement) 0 dose .XX ASDIRECTED PRN PRN Reason: RX DOSE Methocarbamol (Robaxin) 750 mg PO BID [facility] Last Admin: 11/01/16 09:50 Dose: 750 mg Metoclopramide HCl (Reglan) 5 mg PO QID [facility] Last Admin: 11/01/16 09:46 Dose: 5 mg Metoprolol Succinate (Toprol Xl) 25 mg PO DAILY [facility] Last Admin: 11/01/16 09:44 Dose: 25 mg Multivitamins (Thera) 1 each PO DAILY [facility] Last Admin: 11/01/16 09:45 Dose: 1 each Ondansetron HCl (Zofran) 4 mg IV Q6H PRN PRN Reason: Nausea/Vomiting Last Admin: 10/29/16 01:01 Dose: 4 mg Pantoprazole Sodium (Protonix) 40 mg PO DAILY@0700 [facility] Last Admin: 11/01/16 06:43 Dose: 40 mg Cranberry [Cranberry (] 400 Mg) 0 each PO DAILY [facility] Last Admin: 10/31/16 08:09 Dose: Not Given Polyethylene Glycol (Miralax) 17 gm PO DAILY PRN PRN Reason: Constipation Potassium Chloride (Pharmacy To Dose - Potassium Replacement) 0 dose .XX ASDIRECTED PRN PRN Reason: RX DOSE Pregabalin (Lyrica) 150 mg PO BID [facility] Last Admin: 11/01/16 09:44 Dose: 150 mg Senna/Docusate Sodium (Senna Plus) 1 tab PO BID PRN PRN Reason: Constipation Sodium Chloride (Saline Flush) 10 ml FLUSH ASDIRECTED PRN PRN Reason: Keep Vein Open Sucralfate (Carafate) 1 gm PO QIDACANDBED [facility] Last Admin: 11/01/16 06:43 Dose: 1 gm Tamsulosin HCl (Flomax) 0.4 mg PO BEDTIME [facility] Last Admin: 10/31/16 20:43 Dose: 0.4 mg Temazepam (Restoril) 30 mg PO BEDTIME PRN PRN Reason: Sleep Last Admin: 11/01/16 00:34 Dose: 30 mg Vit A/Vit C/Vit E/Selen/Cu/Zn/Lutei (Icaps Mv) 1 tab PO DAILY [facility] Last Admin: 11/01/16 09:45 Dose: 1 tab Discontinued Medications Diatrizoate Meglum/Diatrizoate Sod (Gastrografin 37%) 120 ml PO ONETIME ONE Stop: 10/28/16 22:03 Last Admin: 11/01/16 09:30 Dose: Not Given Hydromorphone HCl (Dilaudid) 1 mg IVPUSH ONETIME ONE Stop: 10/28/16 20:00 Last Admin: 10/28/16 20:09 Dose: 1 mg Hydromorphone HCl (Dilaudid) 0.5 mg IVPUSH ONETIME ONE Stop: 10/28/16 20:59 Last Admin: 10/28/16 21:06 Dose: 0.5 mg Sodium Chloride (Normal Saline) 1,000 mls @ 200 mls/hr IV ONETIME ONE Stop: 10/29/16 00:58 Last Admin: 10/28/16 20:07 Dose: 200 mls/hr Dextrose/Sodium Chloride (Dextrose 5%-1/2 Ns) 1,000 mls @ 125 mls/hr IV ASDIRECTED [facility] Last Admin: 10/29/16 01:05 Dose: 125 mls/hr Dextrose/Sodium Chloride (Dextrose 5%-1/2 Ns) 1,000 mls @ 125 [facility] Last Admin: 10/30/16 04:14 Dose: 125 mls/hr Magnesium Sulfate 2 gm/ Premix 50 mls @ 25 mls/hr IV ONETIME ONE Stop: 10/29/16 14:59 Last Admin: 10/29/16 12:16 Dose: 25 mls/hr Magnesium Sulfate 2 gm/ Premix 50 mls @ 50 mls/hr IV ONETIME ONE Stop: 10/30/16 09:59 Last Admin: 10/30/16 09:28 Dose: 50 mls/hr Iopamidol (Isovue-370 (76%)) 100 ml IVPUSH ONETIME ONE Stop: 10/28/16 22:02 Last Admin: 11/01/16 09:30 Dose: Not Given Magnesium Oxide (Magnesium Oxide) 800 mg PO ONETIME ONE Stop: 11/01/16 10:31 Last Admin: 11/01/16 09:44 Dose: 800 mg Metoclopramide HCl (Reglan) 10 mg IVPUSH ONETIME ONE Stop: 10/28/16 20:00 Last Admin: 10/28/16 20:08 Dose: 10 mg Metoprolol Succinate (Toprol Xl) 12.5 mg PO DAILY TA Tamsulosin HCl (Flomax) 0.4 mg PO DAILY TA Temazepam (Restoril) 30 mg PO BEDTIME PRN PRN Reason: Sleep - Exam Quality Assessment: Reports: DVT prophylaxis General: Reports: alert, oriented, cooperative, no acute distress HEENT: Reports: Pupils equal, Pupils reactive, EOMI, Mucous membr. moist/pink Neck: Reports: supple Lungs: Reports: Clear to auscultation, Normal respiratory effort Cardiovascular: Reports: regular rate, regular rhythm Abdomen: Reports: bowel sounds present, soft, no tenderness, no distension (Male) Exam: Deferred Rectal (Males) Exam: Deferred Skin: Reports: warm, dry, intact Neurological: Reports: no new focal deficit Psy/Mental Status: Reports: alert, normal affect, normal mood *Q Meaningful Use (DIS) - VTE *Q VTE Criteria *Q: - Stroke *Q Stroke Criteria *Q: - AMI *Q AMI Criteria *Q:
[2016-11-01 12:43] VITALS: BP 152/95
== END 2016-11-01 13:27 | disposition home or self-care (01) | DRG 440 ==
LOC: JD.ED 19:34 → JD.ICU 22:51 → JD.MS 10-31 20:00
PROVIDERS: ADMIT Emergency Medicine; ATTEND Internal Medicine
DX: K85.3 Drug induced acute pancreatitis (principal); K57.90 Diverticulosis of intestine, part unspecified, without perforation or abscess without bleeding; I10 Essential (primary) hypertension; G47.30 Sleep apnea, unspecified; G47.33 Obstructive sleep apnea (adult) (pediatric); J44.9 Chronic obstructive pulmonary disease, unspecified; G89.29 Other chronic pain; E66.9 Obesity, unspecified; Z68.34 Body mass index [BMI] 34.0-34.9, adult; Z79.899 Other long term (current) drug therapy; Z88.6 Allergy status to analgesic agent; Z91.048 Other nonmedicinal substance allergy status; R06.02 Shortness of breath
CPT/HCPCS: 36415; 71010; 74000; 74177; 80053; 81001; 83605; 83690; 83735; 83880; 84484; 85025; 85610; 86140; 93005; 96361; 96374; 96375; 99285; G0480; J1170 ×2; J2765; J7040; Q9963; 80048; 80061; 83615; 87040; 97110-GP; 97116-GP; 97161-GP; 97165-GO; 97530-GP; 99232; 99239; A9270-GY; J1650; J1956; J2405; J3475; J7042

== ENCOUNTER 2019-12-18 10:31 | Emergency (ER) | payer MEDICARE, BC ==
[2019-12-18 10:56] VITALS: PULSE 70
--- NOTE | 2019-12-18 11:06 | EDM.PDOC ---
ED HPI GENERAL MEDICAL PROBLEM - General Chief Complaint: Chest Pain Stated Complaint: SOB/CHEST PAIN Time Seen by Provider: 12/18/19 10:41 Source of Information: Reports: Patient - History of Present Illness INITIAL COMMENTS - FREE TEXT/NARRATIVE: TRIAGE NOTE -- pt c/o intermittent chest pains for over one month. States pain moves in various parts of chest. Currently pain on R) side of chest and into neck and wraps around neck and into back. States at times pain is in L) side of chest. Pt denies fever or cough. Pt does c/o SOB. c/o nausea earlier. States pain has progressively become worse, rating pain "ten" at times but currently rating pain "three." More "winded" with activity. Above-noted. The patient's complaint boils down to this: He has had back surgery and neck surgery. He has intense intermittent stabbing pain in his neck which he thinks is radiatING to his chest area. There is tingling down his limbs at times. He says that the pain is so intense at times that it is incapacitating. He has had several spinal surgeries including surgery on his neck. Last evaluation was some months ago with an MRI. He has a neurosurgeon in [place]. He had a stress test about 3 years ago and says it was just fine. He has not had cardiac catheterization. He does have hypertension. No diabetes. The pain the patient is complaining of is sharp severe intermittent but not associated with shortness of breath sweating or other ominous symptoms. He takes several medications including a muscle relaxer and a nonsteroidal type pain pill and others for his condition. Right Neck Pain Score (Numeric/FACES): 3 - Related Data Allergies Allergy/AdvReac Type Severity Reaction Status Date / Time adhesive Allergy Itching Verified 12/18/19 10:46 morphine AdvReac Nausea and Verified 12/18/19 10:46 Vomiting Home Meds: Home Meds Acetaminophen [Tylenol Arthritis] 1,300 mg PO BID PRN 10/28/16 [History] B2/Vits A,C,E/Lut/Zeaxanth/Min [Icaps] 1 cap PO DAILY 10/28/16 [History] Fenofibric Acid (Choline) [Trilipix] 135 mg PO BEDTIME 10/28/16 [History] Methocarbamol [Robaxin-750] 750 mg PO BID 10/28/16 [History] Metoprolol Succinate [Toprol XL] 25 mg PO DAILY 10/28/16 [History] Multivitamin [Multivitamins] 1 tab PO DAILY 10/28/16 [History] Omeprazole 20 mg PO BID 10/28/16 [History] Pregabalin [Lyrica] 150 mg PO BID 10/28/16 [History] Sucralfate 2 gram PO BID 10/28/16 [History] Tamsulosin [Flomax] 0.4 mg PO BEDTIME 10/28/16 [History] traMADol HCl [Ultram] 100 mg PO BID 10/28/16 [History] Glucosa Roe 2KCl/Chondroitin Roe [Glucosamine Chondroitin Caplet] 1 tab PO DAILY 10/29/16 [History] Ascorbate Calcium [Vitamin C] 500 mg PO DAILY 12/18/19 [History] Bran/Gum/Fib/[place]/Psyl/Kelp/Pec [Fiber 6 Tablet] 1,000 mg PO DAILY 12/18/19 [ History] Docusate Sodium [Colace] 200 mg PO DAILY 12/18/19 [History] Past Medical History HEENT History: Reports: Cataract Cardiovascular History: Reports: Hypertension Respiratory History: Reports: COPD, Sleep Apnea Gastrointestinal History: Reports: Hemorrhoids Other Gastrointestinal History: Hernia Musculoskeletal History: Reports: Other (See Below) Other Musculoskeletal History: BACK SURGERY - Past Surgical History HEENT Surgical History: Reports: Cataract Surgery GI Surgical History: Reports: Appendectomy, Cholecystectomy, Other (See Below) Musculoskeletal Surgical History: Reports: Knee Replacement Social & Family History - Family History Family Medical History: Noncontributory - Caffeine Use Caffeine Use: Reports: None - Living Situation & Occupation Living situation: Reports: , with Spouse Occupation: Retired ED ROS GENERAL - Review of Systems Review Of Systems: Comprehensive ROS is negative, except as noted in HPI. ED EXAM, GENERAL - Physical Exam Exam: See Below Exam Limited By: No Limitations General Appearance: Alert, WD/WN, No Apparent Distress Eye Exam: Bilateral Eye: EOMI, PERRL Ears: Normal External Exam Nose: Normal Inspection Throat/Mouth: Normal Inspection Head: Atraumatic, Normocephalic Neck: Other (There is a posterior midline scar. There is mild tenderness on deep palpation at the inferior point of the scar. Neck is otherwise supple and unremarkable.) Respiratory/Chest: No Respiratory Distress, Lungs Clear, Normal Breath Sounds Cardiovascular: Regular Rate, Rhythm, No Edema GI/Abdominal: Soft, Non-Tender Back Exam: Normal Inspection Extremities: Non-Tender, No Pedal Edema Neurological: Alert, Oriented, Normal Cognition, No Motor/Sensory Deficits Psychiatric: Normal Affect Skin Exam: Warm, Dry Course - Vital Signs Last Recorded V/S: Last Vital Signs Temp 36.2 C 12/18/19 10:40 Pulse 70 12/18/19 10:40 Resp 16 12/18/19 10:40 BP 160/87 H 12/18/19 10:40 Pulse Ox 98 12/18/19 10:55 - Orders/Labs/Meds Orders: Active Orders 24 hr Category Date Time Status EKG Documentation Completion [RC] STAT Care 12/18/19 10:55 Active Oxygen Therapy, ED [RC] ASDIRECTED Care 12/18/19 10:55 Active Chest 1V Frontal [CR] Stat Exams 12/18/19 10:54 Taken Labs: Laboratory Tests 12/18/19 12/18/19 12/18/19 Range/Units 11:05 11:05 11:05 WBC 5.11 (4.23-9.07) K/mm3 RBC 5.09 (4.63-6.08) M/mm3 Hgb 15.4 (13.7-17.5) gm/dl Hct 48.0 (40.1-51.0) % MCV 94.3 H (79.0-92.2) fl MCH 30.3 (25.7-32.2) pg MCHC 32.1 L (32.2-35.5) g/dl RDW Std Deviation 43.3 (35.1-43.9) fL Plt Count 201 (163-337) K/mm3 MPV 10.3 (9.4-12.3) fl Neutrophils % (Manual) 54 (40-60) % Band Neutrophils % 0 (0-10) % Lymphocytes % (Manual) 35 (20-40) % Atypical Lymphs % 0 % Monocytes % (Manual) 9 (2-10) % Eosinophils % (Manual) 2 (0.8-7.0) % Basophils % (Manual) 0 L (0.2-1.2) Platelet Estimate Adequate RBC Morph Comment Normal PT 10.7 (9.7-12.0) SECONDS INR 0.98 Sodium 142 (136-145) mEq/L Potassium 4.1 (3.5-5.1) mEq/L Chloride 104 (98-107) mEq/L Carbon Dioxide 28 (21-32) mEq/L Anion Gap 14.1 (5-15) BUN 21 H (7-18) mg/dL Creatinine 1.2 (0.7-1.3) mg/dL Est Cr Clr Drug Dosing 45.13 mL/min Estimated GFR (MDRD) 58 (>60) mL/min BUN/Creatinine Ratio 17.5 (14-18) Glucose 115 (83-115) mg/dL Calcium 9.3 (8.5-10.1) mg/dL Magnesium 1.9 (1.8-2.4) mg/dl Total Bilirubin 0.7 (0.2-1.0) mg/dL AST 15 (15-37) U/L ALT 17 (16-63) U/L Alkaline Phosphatase 52 (46-116) U/L Troponin I < 0.017 (0.00-0.056) ng/mL Total Protein 7.5 (6.4-8.2) g/dl Albumin 3.8 (3.4-5.0) g/dl Globulin 3.7 gm/dL Albumin/Globulin Ratio 1.0 (1-2) Lipase (73-393) U/L 04/14/20 Range/Units 11:05 WBC (4.23-9.07) K/mm3 RBC (4.63-6.08) M/mm3 Hgb (13.7-17.5) gm/dl Hct (40.1-51.0) % MCV (79.0-92.2) fl MCH (25.7-32.2) pg MCHC (32.2-35.5) g/dl RDW Std Deviation (35.1-43.9) fL Plt Count (163-337) K/mm3 MPV (9.4-12.3) fl Neutrophils % (Manual) (40-60) % Band Neutrophils % (0-10) % Lymphocytes % (Manual) (20-40) % Atypical Lymphs % % Monocytes % (Manual) (2-10) % Eosinophils % (Manual) (0.8-7.0) % Basophils % (Manual) (0.2-1.2) Platelet Estimate RBC Morph Comment PT (9.7-12.0) SECONDS INR Sodium (136-145) mEq/L Potassium (3.5-5.1) mEq/L Chloride (98-107) mEq/L Carbon Dioxide (21-32) mEq/L Anion Gap (5-15) BUN (7-18) mg/dL Creatinine (0.7-1.3) mg/dL Est Cr Clr Drug Dosing mL/min Estimated GFR (MDRD) (>60) mL/min BUN/Creatinine Ratio (14-18) Glucose (83-115) mg/dL Calcium (8.5-10.1) mg/dL Magnesium (1.8-2.4) mg/dl Total Bilirubin (0.2-1.0) mg/dL AST (15-37) U/L ALT (16-63) U/L Alkaline Phosphatase (46-116) U/L Troponin I (0.00-0.056) ng/mL Total Protein (6.4-8.2) g/dl Albumin (3.4-5.0) g/dl Globulin gm/dL Albumin/Globulin Ratio (1-2) Lipase 221 (73-393) U/L - Re-Assessments/Exams Free Text/Narrative Re-Assessment/Exam: 12/18/19 13:33 As there was concern about possible chest pain a full work-up was done. Troponin is negative. No evidence of an acute cardiological event. Patient does have a history of pancreatitis and was concerned that perhaps his pancreas was part of the problem. Lipase was well within the reference range. It would appear that the patient's complaint is related to a spinal degenerative process and surgeries in the past. He has a neurosurgeon in [place] and is to call him this afternoon and be seen [facility]. At discharge the patient was quite comfortable without any complaint of pain at that point. Departure - Departure Time of Disposition: 13:35 Disposition: Home, Self-Care 01 Clinical Impression: Neck pain with history of cervical spinal surgery, Chronic radicular cervical pain Referrals: Jourdan Robledo MD [Primary Care Provider] - Forms: ED Department Discharge Additional Instructions: It would appear that the sharp intermittent incapacitating pain is related to processes in your neck requiring surgery in the past. It is recommended that you get in touch with your neurosurgeon [facility] for additional evaluation. Strict precautions return to ER. Chest pain associated with shortness of breath, sweating, inability to mobilize etc. Sepsis Event Note - Evaluation Sepsis Screening Result: No Definite Risk - Focused Exam Vital Signs: Vital Signs Temp Pulse Resp BP Pulse Ox Pulse Ox 12/18/19 10:55 98 12/18/19 10:40 36.2 C 70 16 160/87 H 95 Date Exam was Performed: 12/18/19 Time Exam was Performed: 13:28 - My Orders Last 24 Hours: My Active Orders 12/18/19 10:54 Chest 1V Frontal [CR] Stat 12/18/19 10:55 EKG Documentation Completion [RC] STAT Oxygen Therapy, ED [RC] ASDIRECTED - Assessment/Plan Last 24 Hours: My Active Orders 12/18/19 10:54 Chest 1V Frontal [CR] Stat 12/18/19 10:55 EKG Documentation Completion [RC] STAT Oxygen Therapy, ED [RC] ASDIRECTED
[2019-12-18 14:39] VITALS: BP 155/80
--- NOTE | 2019-12-19 07:53 | CR ---
Chest: Portable view of the chest was obtained. Comparison: Prior chest x-ray of 10/28/16. Heart has a left ventricular configuration. Tortuous thoracic aorta is noted. Prior cervical spine surgery is present. Lungs are clear with no acute parenchymal change. Bony structures are grossly intact. Surgical clips are present within the upper right abdomen. Impression: 1. Findings as noted above. 2. Nothing acute is appreciated. Diagnostic code #2 This report was dictated in MDT
== END 2019-12-18 14:00 | disposition home or self-care (01) ==
LOC: JD.ED 10:31
DX: M54.12 Radiculopathy, cervical region (principal); Z91.09 Other allergy status, other than to drugs and biological substances; Z88.5 Allergy status to narcotic agent; I10 Essential (primary) hypertension; J44.9 Chronic obstructive pulmonary disease, unspecified; Z79.899 Other long term (current) drug therapy
CPT/HCPCS: 36415; 71045; 71045-26; 80053; 83690; 83735; 84484; 85007; 85027; 85610; 93005; 93010; 99283; 99285-25

== ENCOUNTER 2020-05-19 10:03 | Emergency (ER) | payer MEDICARE, BC ==
[2020-05-19] MEDS ORDERED: Sodium Chloride 0.9% 10 ML Syringe FLUSH PRN (10:34)
[2020-05-19] MEDS ORDERED: Sodium Chloride 0.9% 1,000 ML IV STA (10:34)
--- NOTE | 2020-05-19 11:10 | EDM.PDOC ---
ED HPI GENERAL MEDICAL PROBLEM - General Chief Complaint: General Stated Complaint: DIARRHEA/ABD PAIN/COUGH/BODY ACHE/FEVER Time Seen by Provider: 05/19/20 10:15 Source of Information: Reports: Patient History Limitations: Reports: No Limitations - History of Present Illness INITIAL COMMENTS - FREE TEXT/NARRATIVE: The patient presents with fever, chills, cough, weakness, abdominal pain and diarrhea. This has been going on since yesterday. His found out she is COVID 19 positive on the . She has only had a slight cough. The patient has a history of colitis and has had diarrhea today. He also has a slight cough. He has generalized weakness with fever, chills and body aches. He has no history of asthma but he has a history of COPD and sleep apnea. He does not smoke. He has a history of hypertension and hypercholesterolemia. He also has a slight headache. Onset: Gradual Duration: Day(s): (Yesterday) Location: Reports: Generalized Quality: Reports: Ache Severity: Moderate Improves with: Reports: None Worsens with: Reports: None Associated Symptoms: Reports: Cough, Fever/Chills, Shortness of Breath. Denies: Chest Pain, Headaches, Nausea/Vomiting Generalized Pain Score (Numeric/FACES): 4 - Related Data Allergies Allergy/AdvReac Type Severity Reaction Status Date / Time adhesive Allergy Itching Verified 05/19/20 10:14 morphine AdvReac Nausea and Verified 05/19/20 10:14 Vomiting Home Meds: Home Meds Acetaminophen [Tylenol Arthritis] 1,300 mg PO BID PRN 10/28/16 [History] B2/Vits A,C,E/Lut/Zeaxanth/Min [Icaps] 1 cap PO DAILY 10/28/16 [History] Fenofibric Acid (Choline) [Trilipix] 135 mg PO BEDTIME 10/28/16 [History] Metoprolol Succinate [Toprol XL] 25 mg PO DAILY 10/28/16 [History] Multivitamin [Multivitamins] 1 tab PO DAILY 10/28/16 [History] Omeprazole 20 mg PO BID 10/28/16 [History] Pregabalin [Lyrica] 150 mg PO BID 10/28/16 [History] Sucralfate 2 gram PO BID 10/28/16 [History] Tamsulosin [Flomax] 0.4 mg PO BEDTIME 10/28/16 [History] methocarbamoL [Robaxin-750] 750 mg PO BID 10/28/16 [History] traMADol HCl [Ultram] 50 mg PO BID 10/28/16 [History] Glucosa Roe 2KCl/Chondroitin Roe [Glucosamine Chondroitin Caplet] 1 tab PO DAILY 10/29/16 [History] Ascorbate Calcium [Vitamin C] 500 mg PO DAILY PRN 12/18/19 [History] Bran/Gum/Fib/Aydee/Psyl/Kelp/Pec [Fiber 6 Tablet] 1,000 mg PO DAILY 12/18/19 [History] Docusate Sodium [Colace] 200 mg PO DAILY 12/18/19 [History] Past Medical History HEENT History: Reports: Cataract Other HEENT History: wears eyeglasses Cardiovascular History: Reports: High Cholesterol, Hypertension Respiratory History: Reports: COPD, Sleep Apnea Gastrointestinal History: Reports: Hemorrhoids Other Gastrointestinal History: Hernia Genitourinary History: Reports: Retention, Urinary Musculoskeletal History: Reports: Other (See Below) Other Musculoskeletal History: major back surgery Endocrine/Metabolic History: Reports: Other (See Below) Other Endocrine/Metabolic History: borderline diabetic - Infectious Disease History Infectious Disease History: Reports: Chicken Pox, Measles, Mumps - Past Surgical History HEENT Surgical History: Reports: Cataract Surgery GI Surgical History: Reports: Appendectomy, Cholecystectomy Neurological Surgical History: Reports: Other (See Below) Other Neurological Surgeries/Procedures: major back surgery Musculoskeletal Surgical History: Reports: Knee Replacement Social & Family History - Family History Family Medical History: Noncontributory - Tobacco Use Smoking Status *Q: Former Smoker Used Tobacco, but Quit: Yes Month/Year Tobacco Last Used: 1967 - Caffeine Use Caffeine Use: Reports: Coffee - Recreational Drug Use Recreational Drug Use: No - Living Situation & Occupation Living situation: Reports: , with Spouse Occupation: Retired ED ROS GENERAL - Review of Systems Review Of Systems: See Below Constitutional: Reports: No Symptoms HEENT: Reports: No Symptoms Respiratory: Reports: Shortness of Breath, Cough Cardiovascular: Reports: No Symptoms Endocrine: Reports: No Symptoms GI/Abdominal: Reports: Abdominal Pain, Diarrhea. Denies: Nausea, Vomiting : Reports: No Symptoms Musculoskeletal: Reports: Muscle Pain ED EXAM, GENERAL - Physical Exam Exam: See Below Exam Limited By: No Limitations General Appearance: Alert, No Apparent Distress Ears: Normal External Exam Nose: Normal Inspection Head: Atraumatic, Normocephalic Neck: Normal Inspection, Supple, Non-Tender Respiratory/Chest: No Respiratory Distress, Lungs Clear, Normal Breath Sounds Cardiovascular: Regular Rate, Rhythm, No Edema, No Murmur GI/Abdominal: Soft, Non-Tender, No Organomegaly, No Mass Back Exam: Normal Inspection Extremities: Normal Inspection Course - Vital Signs Last Recorded V/S: Last Vital Signs Temp 97.2 F 05/19/20 10:10 Pulse 94 05/19/20 10:10 Resp 18 05/19/20 10:10 BP 127/79 05/19/20 10:10 Pulse Ox 95 05/19/20 10:10 - Orders/Labs/Meds Orders: Active Orders 24 hr Category Date Time Status Peripheral IV Care [RC] . DIRECTED Care 05/19/20 10:35 Active Sodium Chloride 0.9% [Saline Flush] Med 05/19/20 10:34 Active 10 ml FLUSH ASDIRECTED PRN Peripheral IV Insertion Adult [OM.PC] Stat Oth 05/19/20 10:34 Ordered Medication Orders Sodium Chloride (Saline Flush) 10 ml FLUSH ASDIRECTED PRN PRN Reason: Keep Vein Open Last Admin: 05/19/20 10:54 Dose: 10 ml Documented by: PAIGE Labs: Laboratory Tests 05/19/20 05/19/20 05/19/20 Range/Units 10:20 10:50 10:50 WBC 4.24 (4.23-9.07) K/mm3 RBC 4.94 (4.63-6.08) M/mm3 Hgb 15.1 (13.7-17.5) gm/dl Hct 46.9 (40.1-51.0) % MCV 94.9 H (79.0-92.2) fl MCH 30.6 (25.7-32.2) pg MCHC 32.2 (32.2-35.5) g/dl RDW Std Deviation 44.2 H (35.1-43.9) fL Plt Count 154 L (163-337) K/mm3 MPV 10.6 (9.4-12.3) fl Neut % (Auto) 63.6 (34.0-67.9) % Lymph % (Auto) 20.8 L (21.8-53.1) % [place] % (Auto) 14.4 H (5.3-12.2) % Eos % (Auto) 0.5 L (0.8-7.0) Baso % (Auto) 0.5 (0.1-1.2) % Neut # (Auto) 2.70 (1.78-5.38) K/mm3 Lymph # (Auto) 0.88 L (1.32-3.57) K/mm3 [place] # (Auto) 0.61 (0.30-0.82) K/mm3 Eos # (Auto) 0.02 L (0.04-0.54) K/mm3 Baso # (Auto) 0.02 (0.01-0.08) K/mm3 D-Dimer, Quantitative (0.19-0.50) mg/L Sodium 139 (136-145) mEq/L Potassium 3.7 (3.5-5.1) mEq/L Chloride 100 (98-107) mEq/L Carbon Dioxide 29 (21-32) mEq/L Anion Gap 13.7 (5-15) BUN 19 H (7-18) mg/dL Creatinine 1.3 (0.7-1.3) mg/dL Est Cr Clr Drug Dosing 40.92 mL/min Estimated GFR (MDRD) 53 (>60) mL/min BUN/Creatinine Ratio 14.6 (14-18) Glucose 129 H (83-115) mg/dL Calcium 9.0 (8.5-10.1) mg/dL Ferritin (26-388) ng/ml Total Bilirubin 0.5 (0.2-1.0) mg/dL AST 31 (15-37) U/L ALT 25 (16-63) U/L Alkaline Phosphatase 62 (46-116) U/L Lactate Dehydrogenase 162 (85-227) U/L C-Reactive Protein 1.3 H* (<1.0) mg/dL Total Protein 7.6 (6.4-8.2) g/dl Albumin 3.5 (3.4-5.0) g/dl Globulin 4.1 gm/dL Albumin/Globulin Ratio 0.9 L (1-2) SARS Virus RNA (PCR) Positive H (NEGATIVE) 05/19/20 05/19/20 Range/Units 10:50 10:50 WBC (4.23-9.07) K/mm3 RBC (4.63-6.08) M/mm3 Hgb (13.7-17.5) gm/dl Hct (40.1-51.0) % MCV (79.0-92.2) fl MCH (25.7-32.2) pg MCHC (32.2-35.5) g/dl RDW Std Deviation (35.1-43.9) fL Plt Count (163-337) K/mm3 MPV (9.4-12.3) fl Neut % (Auto) (34.0-67.9) % Lymph % (Auto) (21.8-53.1) % [place] % (Auto) (5.3-12.2) % Eos % (Auto) (0.8-7.0) Baso % (Auto) (0.1-1.2) % Neut # (Auto) (1.78-5.38) K/mm3 Lymph # (Auto) (1.32-3.57) K/mm3 [place] # (Auto) (0.30-0.82) K/mm3 Eos # (Auto) (0.04-0.54) K/mm3 Baso # (Auto) (0.01-0.08) K/mm3 D-Dimer, Quantitative 0.46 (0.19-0.50) mg/L Sodium (136-145) mEq/L Potassium (3.5-5.1) mEq/L Chloride (98-107) mEq/L Carbon Dioxide (21-32) mEq/L Anion Gap (5-15) BUN (7-18) mg/dL Creatinine (0.7-1.3) mg/dL Est Cr Clr Drug Dosing mL/min Estimated GFR (MDRD) (>60) mL/min BUN/Creatinine Ratio (14-18) Glucose (83-115) mg/dL Calcium (8.5-10.1) mg/dL Ferritin 476 H (26-388) ng/ml Total Bilirubin (0.2-1.0) mg/dL AST (15-37) U/L ALT (16-63) U/L Alkaline Phosphatase (46-116) U/L Lactate Dehydrogenase (85-227) U/L C-Reactive Protein (<1.0) mg/dL Total Protein (6.4-8.2) g/dl Albumin (3.4-5.0) g/dl Globulin gm/dL Albumin/Globulin Ratio (1-2) SARS Virus RNA (PCR) (NEGATIVE) Meds: Medications Generic Name Dose Route Start Last Admin Trade Name Diana PRN Reason Stop Dose Admin Sodium Chloride 10 ml 05/19/20 10:34 05/19/20 10:54 Saline Flush FLUSH 10 ml ASDIRECTED PRN Administration Keep Vein Open Discontinued Medications Generic Name Dose Route Start Last Admin Trade Name Freadolfo PRN Reason Stop Dose Admin Sodium Chloride 1,000 mls @ 1,000 mls/hr 05/19/20 10:34 05/19/20 10:53 Normal Saline IV 05/19/20 11:33 1,000 mls/hr .BOLUS STA Administration - Re-Assessments/Exams Free Text/Narrative Re-Assessment/Exam: 05/19/20 11:09 I ordered an IV NS bolus, labs, CXR and COVID 19 test. His CXR shows nothing acute. His CBC looks good. His D-dimer was negative. His glucose is elevated at 129. His ferritin was elevated at 476. His CRP is elevated at 1.3. His COVID 19 was positive. His oxygen saturations are good. His CXR looks good. I do not feel he needs admission at this time. Departure - Departure Time of Disposition: 12:20 Disposition: Home, Self-Care 01 Condition: Good Clinical Impression: COVID-19 Diarrhea Qualifiers: Diarrhea type: unspecified type Qualified Code(s): R19.7 - Diarrhea, unspecified - Discharge Information *PRESCRIPTION DRUG MONITORING PROGRAM REVIEWED*: Not Applicable *COPY OF PRESCRIPTION DRUG MONITORING REPORT IN PATIENT [place]: Not Applicable Referrals: Jourdan Robledo MD [Primary Care Provider] - 1 Week Forms: ED Department Discharge Additional Instructions: Drink plenty of fluids. Take tylenol or motrin for fever. Please return if you feel worse. Sepsis Event Note (ED) - Evaluation Sepsis Screening Result: Possible Sepsis Risk - Focused Exam Vital Signs: Vital Signs Temp Pulse Resp BP Pulse Ox 05/19/20 10:10 97.2 F 94 18 127/79 95 - My Orders Last 24 Hours: My Active Orders 05/19/20 10:34 Sodium Chloride 0.9% [Saline Flush] 10 ml FLUSH ASDIRECTED PRN Peripheral IV Insertion Adult [OM.PC] Stat 05/19/20 10:35 Peripheral IV Care [RC] . DIRECTED - Assessment/Plan Last 24 Hours: My Active Orders 05/19/20 10:34 Sodium Chloride 0.9% [Saline Flush] 10 ml FLUSH ASDIRECTED PRN Peripheral IV Insertion Adult [OM.PC] Stat 05/19/20 10:35 Peripheral IV Care [RC] . DIRECTED
--- NOTE | 2020-05-19 11:50 | CR ---
Chest: Portable view of the chest was dated. Comparison: Prior chest x-ray of 12/18/19 and 11/01/13. Heart size is within normal limits for portable technique. Tortuous thoracic aorta is seen. Prior cervical spine surgery is noted. Slight atelectasis within the lateral left costophrenic angle is noted. Lungs otherwise are clear with no acute parenchymal change. Prior lumbar spine surgery is also noted. Scattered disc space narrowing and endplate spurring is seen within the thoracic spine. Impression: 1. Findings as noted above. 2. Nothing acute is seen. Diagnostic code #2 This report was dictated in MDT
[2020-05-19 12:54] VITALS: BP 127/82; PULSE 80
== END 2020-05-19 12:35 | disposition home or self-care (01) ==
LOC: JD.ED 10:03
DX: U07.1 COVID-19 (principal); I10 Essential (primary) hypertension; J44.9 Chronic obstructive pulmonary disease, unspecified; Z90.49 Acquired absence of other specified parts of digestive tract; Z88.5 Allergy status to narcotic agent; Z88.8 Allergy status to other drugs, medicaments and biological substances; Z79.899 Other long term (current) drug therapy; Z87.891 Personal history of nicotine dependence
CPT/HCPCS: 36415; 71045; 80053; 82728; 83615; 85025; 85379; 86140; 99285; J7030; U0002

== ENCOUNTER 2020-05-26 12:24 | Emergency (ER) | payer MEDICARE, BC ==
[2020-05-26 12:53] VITALS: BP 151/87
[2020-05-26] MEDS ORDERED: Sodium Chloride 0.9% 10 ML Syringe FLUSH PRN (13:23)
--- NOTE | 2020-05-26 14:54 | CR ---
Chest: Portable view of the chest was obtained. Comparison: Prior chest x-ray of 05/19/20. Heart is prominent but accentuated from portable technique. Widening of the upper mediastinum is seen which is stable. Tortuous thoracic aorta is seen. Lungs are clear. Previous cervical spine surgery is noted. Previous resection of the distal right clavicle is noted. Impression: 1. Findings as noted above. 2. Nothing acute is appreciated. Diagnostic code #2 Study was dictated in MDT
--- NOTE | 2020-05-26 15:56 | EDM.PDOC ---
ED HPI GENERAL MEDICAL PROBLEM - General Chief Complaint: Chest Pain Stated Complaint: CHEST PAIN/COVID + Time Seen by Provider: 05/26/20 13:23 Source of Information: Reports: Patient History Limitations: Reports: No Limitations - History of Present Illness INITIAL COMMENTS - FREE TEXT/NARRATIVE: Patient is an 85-year-old male presenting to the emergency department with intermittent lower chest/upper abdomen discomfort with deep breathing or coughing. Patient is a COVID positive diagnosed 1 week ago. States that he is overall had some weakness, slight cough, and fatigue. Today he started having the intermittent lower chest/upper abdominal discomfort which she describes as a spasm and occasionally a twitching . He has also had some episodes of diarrhea. He does complain of some shortness of breath intermittently, mostly with exertion. He denies any known fevers. Patient has past medical history significant for hypertension, high cholesterol, and COPD. He does not have a home pulse oximeter. Patient states that his is also sick and was diagnosed with COVID approximately 2 weeks ago. She is doing well overall with just a minimal cough. Vital signs in triage were stable. Oxygen saturation was 99% on room air, temperature 96.9, pulse 68, respiratory rate 16, blood pressure of 151/87. Chest Pain Score (Numeric/FACES): 3 - Related Data Allergies Allergy/AdvReac Type Severity Reaction Status Date / Time adhesive Allergy Itching Verified 05/26/20 12:53 morphine AdvReac Nausea and Verified 05/26/20 12:53 Vomiting Home Meds: Home Meds Acetaminophen [Tylenol Arthritis] 1,300 mg PO BID PRN 10/28/16 [History] B2/Vits A,C,E/Lut/Zeaxanth/Min [Icaps] 1 cap PO DAILY 10/28/16 [History] Fenofibric Acid (Choline) [Trilipix] 135 mg PO BEDTIME 10/28/16 [History] Metoprolol Succinate [Toprol XL] 25 mg PO DAILY 10/28/16 [History] Multivitamin [Multivitamins] 1 tab PO DAILY 10/28/16 [History] Omeprazole 20 mg PO BID 10/28/16 [History] Pregabalin [Lyrica] 150 mg PO BID 10/28/16 [History] Sucralfate 2 gram PO BID 10/28/16 [History] Tamsulosin [Flomax] 0.4 mg PO BEDTIME 10/28/16 [History] methocarbamoL [Robaxin-750] 750 mg PO BID 10/28/16 [History] traMADol HCl [Ultram] 50 mg PO BID 10/28/16 [History] Glucosa Roe 2KCl/Chondroitin Roe [Glucosamine Chondroitin Caplet] 1 tab PO DAILY 10/29/16 [History] Ascorbate Calcium [Vitamin C] 500 mg PO DAILY PRN 12/18/19 [History] Bran/Gum/Fib/Aydee/Psyl/Kelp/Pec [Fiber 6 Tablet] 1,000 mg PO DAILY 12/18/19 [History] Docusate Sodium [Colace] 200 mg PO DAILY 12/18/19 [History] Benzonatate [Tessalon Perle] 100 mg PO TID PRN #20 capsule 05/26/20 [Rx] Fluticasone Propionate [Flonase] 16 gm .XX DAILY PRN #1 bottle 05/26/20 [Rx] Past Medical History HEENT History: Reports: Cataract Other HEENT History: wears eyeglasses Cardiovascular History: Reports: High Cholesterol, Hypertension Respiratory History: Reports: COPD, Sleep Apnea Gastrointestinal History: Reports: Hemorrhoids Other Gastrointestinal History: Hernia Genitourinary History: Reports: Retention, Urinary Musculoskeletal History: Reports: Other (See Below) Other Musculoskeletal History: major back surgery Endocrine/Metabolic History: Reports: Other (See Below) Other Endocrine/Metabolic History: borderline diabetic - Infectious Disease History Infectious Disease History: Reports: Novel Coronavirus - Past Surgical History HEENT Surgical History: Reports: Cataract Surgery GI Surgical History: Reports: Appendectomy, Cholecystectomy Neurological Surgical History: Reports: Other (See Below) Other Neurological Surgeries/Procedures: major back surgery Musculoskeletal Surgical History: Reports: Knee Replacement Social & Family History - Family History Family Medical History: Noncontributory - Tobacco Use Smoking Status *Q: Never Smoker - Caffeine Use Caffeine Use: Reports: Coffee - Living Situation & Occupation Living situation: Reports: , with Spouse Occupation: Retired ED ROS GENERAL - Review of Systems Review Of Systems: Comprehensive ROS is negative, except as noted in HPI. ED EXAM, GENERAL - Physical Exam Exam: See Below General Appearance: Alert, WD/WN, No Apparent Distress Respiratory/Chest: No Respiratory Distress, Lungs Clear, Normal Breath Sounds, No Accessory Muscle Use, Chest Non-Tender Cardiovascular: Normal Peripheral Pulses, Regular Rate, Rhythm, No Edema, No Gallop, No JVD, No Murmur, No Rub Neurological: Alert, Oriented, CN II-XII Intact, Normal Cognition, Normal Gait, Normal Reflexes, No Motor/Sensory Deficits Psychiatric: Normal Affect, Normal Mood Skin Exam: Warm, Dry, Intact, Normal Color, No Rash EKG INTERPRETATION EKG Date: 05/26/20 Time: 12:54 Rhythm: NSR Rate (Beats/Min): 65 [place]: LAD-Left [place] Deviation P-Wave: Present QRS: Normal ST-T: Normal QT: Normal GA/PQ Interval: First-degree AV block EKG Interpretation Comments: Sinus rhythm at 65 bpm First-degree AV block Q waves in lead III and aVF-old inferior wall CA Left axis deviation (-70) No signs of acute ischemia EKG interpreted by Dr. Sindy MADRID: Course - Vital Signs Last Recorded V/S: Last Vital Signs Temp 97.8 F 05/26/20 16:47 Pulse 65 05/26/20 16:47 Resp 16 05/26/20 12:50 BP 151/87 H 05/26/20 12:50 Pulse Ox 98 05/26/20 16:47 - Orders/Labs/Meds Labs: Laboratory Tests 05/26/20 05/26/20 05/26/20 Range/Units 13:45 13:45 13:45 WBC 4.58 (4.23-9.07) K/mm3 RBC 4.67 (4.63-6.08) M/mm3 Hgb 14.3 (13.7-17.5) gm/dl Hct 44.0 (40.1-51.0) % MCV 94.2 H (79.0-92.2) fl MCH 30.6 (25.7-32.2) pg MCHC 32.5 (32.2-35.5) g/dl RDW Std Deviation 43.0 (35.1-43.9) fL Plt Count 266 D (163-337) K/mm3 MPV 10.5 (9.4-12.3) fl Neut % (Auto) 58.9 (34.0-67.9) % Lymph % (Auto) 28.4 (21.8-53.1) % [place] % (Auto) 10.3 (5.3-12.2) % Eos % (Auto) 1.3 (0.8-7.0) Baso % (Auto) 0.7 (0.1-1.2) % Neut # (Auto) 2.70 (1.78-5.38) K/mm3 Lymph # (Auto) 1.30 L (1.32-3.57) K/mm3 [place] # (Auto) 0.47 (0.30-0.82) K/mm3 Eos # (Auto) 0.06 (0.04-0.54) K/mm3 Baso # (Auto) 0.03 (0.01-0.08) K/mm3 D-Dimer, Quantitative (0.19-0.50) mg/L Sodium 141 (136-145) mEq/L Potassium 4.3 (3.5-5.1) mEq/L Chloride 102 (98-107) mEq/L Carbon Dioxide 29 (21-32) mEq/L Anion Gap 14.3 (5-15) BUN 17 (7-18) mg/dL Creatinine 1.2 (0.7-1.3) mg/dL Est Cr Clr Drug Dosing TNP Estimated GFR (MDRD) 58 (>60) mL/min BUN/Creatinine Ratio 14.2 (14-18) Glucose 127 H (83-115) mg/dL Calcium 8.9 (8.5-10.1) mg/dL Ferritin (26-388) ng/ml Total Bilirubin 0.4 (0.2-1.0) mg/dL AST 20 (15-37) U/L ALT 22 (16-63) U/L Alkaline Phosphatase 60 (46-116) U/L Lactate Dehydrogenase 155 (85-227) U/L Troponin I < 0.017 (0.00-0.056) ng/mL C-Reactive Protein 0.7 (<1.0) mg/dL NT-Pro-B Natriuret Pep 175 (0-450) pg/mL Total Protein 7.3 (6.4-8.2) g/dl Albumin 3.3 L (3.4-5.0) g/dl Globulin 4.0 gm/dL Albumin/Globulin Ratio 0.8 L (1-2) 05/26/20 05/26/20 Range/Units 13:45 13:45 WBC (4.23-9.07) K/mm3 RBC (4.63-6.08) M/mm3 Hgb (13.7-17.5) gm/dl Hct (40.1-51.0) % MCV (79.0-92.2) fl MCH (25.7-32.2) pg MCHC (32.2-35.5) g/dl RDW Std Deviation (35.1-43.9) fL Plt Count (163-337) K/mm3 MPV (9.4-12.3) fl Neut % (Auto) (34.0-67.9) % Lymph % (Auto) (21.8-53.1) % [place] % (Auto) (5.3-12.2) % Eos % (Auto) (0.8-7.0) Baso % (Auto) (0.1-1.2) % Neut # (Auto) (1.78-5.38) K/mm3 Lymph # (Auto) (1.32-3.57) K/mm3 [place] # (Auto) (0.30-0.82) K/mm3 Eos # (Auto) (0.04-0.54) K/mm3 Baso # (Auto) (0.01-0.08) K/mm3 D-Dimer, Quantitative 0.43 (0.19-0.50) mg/L Sodium (136-145) mEq/L Potassium (3.5-5.1) mEq/L Chloride (98-107) mEq/L Carbon Dioxide (21-32) mEq/L Anion Gap (5-15) BUN (7-18) mg/dL Creatinine (0.7-1.3) mg/dL Est Cr Clr Drug Dosing Estimated GFR (MDRD) (>60) mL/min BUN/Creatinine Ratio (14-18) Glucose (83-115) mg/dL Calcium (8.5-10.1) mg/dL Ferritin 323 (26-388) ng/ml Total Bilirubin (0.2-1.0) mg/dL AST (15-37) U/L ALT (16-63) U/L Alkaline Phosphatase (46-116) U/L Lactate Dehydrogenase (85-227) U/L Troponin I (0.00-0.056) ng/mL C-Reactive Protein (<1.0) mg/dL NT-Pro-B Natriuret Pep (0-450) pg/mL Total Protein (6.4-8.2) g/dl Albumin (3.4-5.0) g/dl Globulin gm/dL Albumin/Globulin Ratio (1-2) Meds: Medications Discontinued Medications Generic Name Dose Route Start Last Admin Trade Name Diana PRN Reason Stop Dose Admin Sodium Chloride 10 ml 05/26/20 13:23 05/26/20 15:45 Saline Flush FLUSH 10 ml ASDIRECTED PRN Administration Keep Vein Open - Re-Assessments/Exams Free Text/Narrative Re-Assessment/Exam: 05/26/20 15:56 Patient's hematology was grossly unremarkable. D-dimer was normal. Troponin was negative. CRP is normal, proBNP is normal. Chest x-ray showed clear lungs with no signs of pneumonia. There was no acute abnormalities on his EKG. Patient's oxygen saturation has maintained 96 to 99% on room air throughout his stay in the ER. Discussed with patient that he is likely experiencing muscle spasms secondary to cough. He has not been taking anything for cough. Will prescribe him Tessalon Perles for the treatment of cough. He also expresses concern with frequent nasal drainage and postnasal drip. Will recommend he start Flonase nasal spray. I will send prescription to [facility]. Discussed return precautions with him. Also discussed that it would be beneficial for him to get a home pulse oximeter so he can monitor his oxygen saturations. Patient verbalized understanding of this. Discharge instructions as documented. Departure - Departure Time of Disposition: 16:10 Disposition: Home, Self-Care 01 Condition: Good Clinical Impression: COVID-19 - Discharge Information *PRESCRIPTION DRUG MONITORING PROGRAM REVIEWED*: No *COPY OF PRESCRIPTION DRUG MONITORING REPORT IN PATIENT [place]: No Prescriptions: Fluticasone Propionate [Flonase] 16 gm .XX DAILY PRN #1 bottle PRN Reason: Congestion Benzonatate [Tessalon Perle] 100 mg PO TID PRN #20 capsule PRN Reason: Cough Instructions: COVID-19 Frequently Asked Questions, COVID-19 Referrals: Jourdan Robledo MD [Primary Care Provider] - Forms: ED Department Discharge Additional Instructions: You were seen in the emergency department today for concerns of spasming pain and twitching in your lower chest and upper abdomen which occurs with coughing or deep breathing. Work-up included blood work, chest x-ray, and an EKG of your heart. Your overall work-up was found to be completely normal. Your blood work was normal. There is no evidence of blood clots or cardiac involvement. Your EKG showed no acute abnormalities. Your chest x-ray was clear indicating that you have no pneumonia in your lungs. Throughout your stay in the emergency department, your oxygen saturation was 96 to 99% on room air which is excellent. As we discussed, the likely cause of your pain is a muscle strain with muscle spasms related to repetitive coughing. A prescription for Tessalon Perles which is a cough suppressant has been sent to [facility] on [address]. I have also sent a prescription for Flonase nasal spray to help with your nasal drainage. Recommend that you get a home pulse oximeter to monitor your oxygen saturations at home. If you find that you are maintaining an oxygen saturation of 90% or less, recommend return to the emergency department. If you feel like you are worsening in any way and need reevaluation, also return to the emergency department. Sepsis Event Note (ED) - Evaluation Sepsis Screening Result: No Definite Risk
[2020-05-26 16:49] VITALS: PULSE 65
== END 2020-05-26 16:49 | disposition home or self-care (01) ==
LOC: JD.ED 12:24
DX: U07.1 COVID-19 (principal); I10 Essential (primary) hypertension; J44.9 Chronic obstructive pulmonary disease, unspecified; I44.0 Atrioventricular block, first degree; Z88.5 Allergy status to narcotic agent; Z91.048 Other nonmedicinal substance allergy status; Z79.899 Other long term (current) drug therapy; R06.02 Shortness of breath
CPT/HCPCS: 36415; 71045; 71045-26; 80053; 82728; 83615; 83880; 84484; 85025; 85379; 86140; 93005; 93010; 99283; 99285-25